=== PATIENT | female | born 1970 | race Caucasian/White ===

== ENCOUNTER 2023-10-20 17:25 | Outpatient (RCR) | payer BC, SELFPAY | END 2023-10-20 23:59 | disposition home or self-care (01) | LOC: RPT 17:25 | PROVIDERS: ATTENDING PHYSICIAN Physician Assistant Medical; FAMILY PHYSICIAN Family Medicine | DX: R26.81 Unsteadiness on feet (principal); G93.89 Other specified disorders of brain; Z98.890 Other specified postprocedural states | CPT/HCPCS: 97110; 97112; 97163; 97530 ==

== ENCOUNTER 2024-06-26 00:39 | Inpatient (IN) | payer BC, SELFPAY ==
[2024-06-25 17:49] VITALS: BP 112/74
--- NOTE | 2024-06-25 18:58 | EDRN ---
says pt has leg weakness. Pt woke this morning and was unable to bear weight on R leg. Pt has metastatic breast cancer, has mets to bones in spinal column. Last two scan everything has gotten smaller or disappeared. Oncologist said not
to worry about spinal column unless she developed symptoms. pt got a hormone suppressing drug and bone support medication. says injections hurt, and go near the sciatic nerve. No pain or numbness in leg - feels like she had an
epidural.
[2024-06-25 19:02] VITALS: BMI 19.1
[2024-06-25 19:09] VITALS: BP 118/79
[2024-06-25 20:00] VITALS: BP 121/79
[2024-06-25 20:43] LABS: Hematocrit 27.2 % (37.0-47.0); Hemoglobin 9.6 g/dL (12.0-16.0); Mean Corp Hgb Conc. 35.3 g/dL (33.0-37.0); Mean Corpuscular Hgb 35.2 pg (27.0-31.0); Mean Corpuscular Volume 99.6 fL (81.0-99.0); Platelet Count 115 10^3/uL (130-400); Red Blood Cell Count 2.73 10^6/uL (4.20-5.40); Red Cell Dist. Width 17.9 % (11.5-14.5); White Blood Cell Count 3.5 10^3/uL (4.8-10.8)
[2024-06-25 21:24] LABS: % Basophils 0.8 % (0-2); % Eosinophils 1.1 % (0-6); % Immature Granulocytes 0.3 % (0-0.5); % Lymphocytes 49.4 % (20.5-51.1); % Monocytes 3.7 % (1.7-9.3); % Neutrophils 44.7 % (42.2-75.2); Absolute Lymphocytes 1.8 10^3/uL (1.2-3.4); Absolute Monocytes 0.1 10^3/uL (0.1-0.6); Absolute Neutrophils 1.6 10^3/uL (1.4-6.5); Nucleated Red Blood Cells % 0 %
[2024-06-25 21:29] LABS: Blood Urea Nitrogen 13 mg/dl (7-17); Carbon Dioxide 23 mmol/L (22-30); Chloride 105 mmol/L (98-107); Estimated Creatinine Clearance 90 ml/min; Glucose 153 mg/dl (70-99); Potassium 3.5 mmol/L (3.5-5.1); Sodium 138 mmol/L (135-145); eGFR > 60.00
[2024-06-25 21:37] LABS: Erythrocyte Sed Rate 46 mm/hour (0-20)
[2024-06-25 22:06] VITALS: BP 129/70
[2024-06-25] MEDS: DECADRON 10 MG IV (23:34)
--- NOTE | 2024-06-25 23:43 | ED.GENMED ---
History of Present Illness
General
Chief Complaint: Musculo-Skeletal Complaint
Source: patient, records and spouse
Exam Limitations: none
Time Seen by Provider: 06/25/24 18:49
Nursing documentation reviewed up to this point in time: agreed with
History of Present Illness
History of Present Illness:
Patient is a 54-year-old female with known metastatic breast cancer who presents to the emergency department complaining of severe weakness of her right lower extremity. Patient started noticing it very mildly last night and this a.m. she is unable
to stand because of the weakness on the right leg. Patient had 2 injections on either buttock 2 days ago. That was Phosphotec's. Patient denies numbness or paresthesias. Patient denies any incontinence either bowel or bladder. Patient denies
any back pain. Patient has known metastatic lesions into the lumbar spine. However there is 1 in the vertebral body of L2, the right iliac crest and the spinal processes of L5. Patient denies any recent injuries. Patient denies any previous
history of similar episodes. About 10 months ago the patient did undergo neurosurgery for cerebellar lesions. Patient has never had symptoms like this before. Patient denies any fever or chills. Patient denies any GI or symptoms.
Past History
Past History
ED Past Medical History: Cancer (Breast) and IDDM; Negative HTN or Hypercholesterolemia
Social History
Tobacco: Non-smoker
Alcohol: None
Drug: None
Personal:
Living: with family
Employment: Employed
Family History
Family History: Hypertension
Review of Systems
Review of Systems
All Other Systems: ROS reviewed and negative except as documented in HPI and ROS
Constitutional: Denies fever, weight loss or chills
EENT: Reports no symptoms
Respiratory: Reports no symptoms
Cardiac: Reports no symptoms
ABD/GI: Reports no symptoms
: Reports no symptoms; Denies incontinence
Musculoskeletal: Denies joint pain or back pain
Skin: Reports no symptoms
Neurological: Reports weakness (Diffusely in the right lower extremity)
Hematologic/Lymphatic: Reports no symptoms
Psychiatric: Reports no symptoms
Phy Exam
Physical Exam
Physical Exam:
Physical Exam
General: No apparent distress, alert and appropriate, well nourished, well hydrated
HENT: Normocephalic, supple with no lymphadenopathy, no thyromegaly
Eyes: Clear sclera, conjuctiva without injection
Heart: Regular rhythm and rate. No S3, S4. No murmur.
Lungs: No respiratory distress, no stridor, lung sounds clear and equal bilaterally
Abdomen: Soft, nontender, no organomegaly, no CVA tenderness, BS good
Neuro: Alert and oriented x 3, CN II - XII intact, right lower extremity diffusely weak in all dermatomes, no cerebellar dysfunction, sensory intact, DTRs 2/4 and equal bilaterally
Skin: no rash
Psychiatric: well kept. interactive and cooperative
Extremities: No edema, cyanosis, tenderness, Good and equal peripheral pulses.
Musculoskeletal: No pain with straight leg raising. No cervical, thoracic or lumbar spine tenderness. No pelvic tenderness.
Course
Orders/Labs/Results
Orders:
Orders
06/25/24 19:43
CT Lumbar Spine W/ Iv Contrast Urgent
Comment:
Reason For Exam: right lower extremity weakness breast ca met
06/25/24 20:26
BMP [Basic Metabolic Panel] Urgent
Complete Blood Count/With Diff Urgent
Erythrocyte Sed Rate Urgent
06/25/24 23:26
Dexamethasone Sod Phosphate [Decadron] 10 mg IV NOW STA
06/25/24 23:32
Dexamethasone Sod Phosphate [Decadron] 20 mg .ROUTE .STK-MED ONE
Abnormal Lab Results
06/25/24
20:26
WBC 3.5 L 10^3/uL
(4.8-10.8)
RBC 2.73 L 10^6/uL
(4.20-5.40)
Hgb 9.6 L g/dL
(12.0-16.0)
Hct 27.2 L %
(37.0-47.0)
MCV 99.6 H fL
(81.0-99.0)
MCH 35.2 H pg
(27.0-31.0)
RDW 17.9 H %
(11.5-14.5)
Plt Count 115 L 10^3/uL
(130-400)
MPV 11.0 H fL
(7.4-10.4)
ESR 46 H mm/hour
(0-20)
Creatinine 0.5 L mg/dL
(0.6-1.0)
Glucose 153 H mg/dl
(70-99)
06/25/24 20:26
06/25/24 20:26
Vital Signs
Initial and Last Documented VS:
Initial Vital Signs
Temp Pulse Resp BP Pulse Ox
98.3 F 91 20 112/74 97
06/25/24 17:49 06/25/24 17:49 06/25/24 17:49 06/25/24 17:49 06/25/24 17:49
Last Documented Vital Signs
Temp Pulse Resp BP Pulse Ox
98.3 F 84 16 129/70 97
06/25/24 17:49 06/25/24 22:06 06/25/24 22:06 06/25/24 22:06 06/25/24 22:06
*Radiology
Radiology exam reviewed: radiology read reviewed
*Pulse Oximetry
Patient hypoxic: no
*EKG
Interpreted by ED Provider?: NA
*Furniture Detailer Interpretation
Rate: Furniture Detailer- N/A
*Critical Care Note
Total Time (30-74mins, 75-104mins- exclusive of procedures): Not Applicable
Update Note
Update Note:
Patient is unable to stand and weight-bear on her right lower extremity. CT was recommended by radiology. There does not appear to be anything grossly on the CT scan that would be consistent with the patient's symptoms. Would have preferred to
get an MRI but given that this is Thursday evening/night was not fully possible. In the meantime we will start steroids. Patient is on insulin pump and adjust her infusion based on her blood sugar. Patient will be admitted.
ED Attending Note
-
Portions of this chart may have been created with voice recognition software.� Occasional wrong word or��sound alike� substitutions may have occurred due to the inherent limitations of voice recognition software.
Discharge Plan
Departure
Patient Disposition: Admit
Date of Disposition: 06/25/24
Time of Disposition: 23:54
Admit to: Med/Surg
Admit to doctor: Hospitalist
Presentation/result/management discussed w/ accepting MD/DO: Hospitalist
Patient with high blood pressure during this ER visit?: No
Condition: Fair
Covid-19: Not Applicable
Discharge Problem:
Lumbar radiculopathy, acute, Ambulatory dysfunction, Breast cancer metastasized to bone
Prescriptions:
No Action
ondansetron HCl [Zofran] 8 mg Tablet
8 mg PO DAILY
calcium carbonate [Calcium 500] 500 mg calcium (1,250 mg) Tablet,Chewable
500 mg PO DAILY
esomeprazole magnesium [Nexium 24HR] 20 mg Capsule,Delayed Release(Dr/Ec)
20 mg PO DAILY
cholecalciferol (vitamin D3) 1,250 mcg (50,000 unit) Capsule
1,250 mcg PO QWEEK
Kisqali 600 mg/day (200 mg x 3) Tablet
600 mg PO DAILY
Patient Comments:
pt is on this for 3 weeks then off for 1 week
Vitamin B-6
1 tab PO DAILY
magnesium
150 mg PO DAILY
insulin aspart U-100
Patient Comments:
pt has an insulin pump
Referrals:
Alpesh Cárdenas MD [Family Provider] -
Interventions
Interventions:
*Risk Screen - Suicide Last Done: 06/25/24 18:49
*General Assessment Last Done: 06/25/24 17:49
*Neglect/Abuse Screening Last Done: 06/25/24 18:49
*ED COVID-19 Vaccine History Last Done: 06/25/24 18:49
ED-Musculoskeletal Assessment Last Done: 06/25/24 19:09
Discharge Date and Time
Print Language: LIBERIAN
[2024-06-26 00:22] VITALS: BP 124/81
--- NOTE | 2024-06-26 00:27 | HPS.HSE ---
Family Physician
-
Family Physician: Alpesh Cárdenas
Chief Complaint
-
Right lower extremity weakness
History of Present Illness
This is a 54-year-old female with past medical history of metastatic breast cancer who presents to the emergency department with sudden onset of right lower extremity weakness.
Patient has a history of breast cancer status post treatment approximately 3 years ago will obtain had recurrence with metastasis to the brain in August 2023. She is status post resection, Gamma knife radiation and subsequently on maintenance
oral chemotherapy. He has a history of type 1 diabetes on insulin pump. She reports being in usual state of health however she arose this morning and noticed the weakness in her right lower extremity. She is unable to walk due to the weakness in
that leg. She denies any numbness or tingling. She denies any incontinence of the bladder or bowel. She denies constipation. She denies any urinary urgency. Patient denies any recent falls or injuries. Patient denies any headache, blurry
vision or double vision. She denies any nausea or vomiting. She denies any or neurological deficits. She denies having fevers or chills. She denies any hearing changes. Has been no changes in her medications. She is currently off cycle for her
Kisqali.
In the emergency department she was afebrile, blood pressure was 129/70 pulse of 87 she was at 9 7% on room air. White count was 3.5, globin is 9.6 with a platelet count of 115. Chemistries were essentially unremarkable with a blood glucose of
153. Patient had a CT of the lumbar spine showing mo acute fracture or malalignment, scattered heterogenous sclerosis throughout the lumbar and visualized pelvic bones reflecting no metastatic disease. Heterogeneous sclerosis with subtle linear
lucency within L2 posterior spinous process reflecting pathologic fracture of indeterminate activity. There is no spinal canal narrowing. No gross intraspinal mass lesion.
Medical History
Past Medical History
Past Medical History: Reports Cancer (Breast Ca, recurrence with metastatic disease) and IDDM (Type I)
Past Surgical History: Reports Brain (Tumor resection)
Social History
Tobacco: Non-smoker
Alcohol: None
Drug: None
Personal:
Living: With Family
Employment: Employed
Family History
Family History: Not pertinent
Allergies / Home Medications
Allergies reflects when Allergies were last updated in [facility].
Home Medications with original date entered in [facility]
Allergy/Medication List:
Allergies
Allergy/AdvReac Type Severity Reaction Status Date / Time
No Known Allergies Allergy Verified 06/25/24 17:49
Home Medications
Vitamin B-6 1 tab PO DAILY 06/25/24
calcium carbonate (Calcium 500) 500 mg PO DAILY 06/25/24
cholecalciferol (vitamin D3) 1,250 mcg (50,000 unit) capsule 1,250 mcg PO QWEEK 06/25/24
esomeprazole magnesium 20 mg capsule,delayed release (Nexium 24HR) 20 mg PO DAILY 06/25/24
insulin aspart U-100 06/25/24
magnesium 150 mg PO DAILY 06/25/24
ondansetron HCl 8 mg tablet 8 mg PO DAILY 06/25/24
ribociclib 600 mg/day (200 mg x 3) tablets (Kisqali) 600 mg PO DAILY 06/25/24
Review of Systems
-
History Source: Patient
Constitutional: Reports No Symptoms
EENT: Reports No Symptoms
Respiratory: Reports No Symptoms
Cardiac: Reports No Symptoms
Abdomen/GI: Reports No Symptoms
: Reports No Symptoms
Musculoskeletal: Reports No Symptoms
Skin: Reports No Symptoms
Neurological: Reports Weakness
Endocrine: Reports No Symptoms
Hematologic/Lymphatic: Reports No Symptoms
Psych: Reports No Symptoms
Physical Exam
Vital Signs
Vital Signs
Temp Pulse Resp BP Pulse Ox
98.3 F 86 16 124/81 97
06/25/24 17:49 06/26/24 00:22 06/26/24 00:22 06/26/24 00:22 06/26/24 00:22
Physical Exam
General: No Apparent Distress, Comfortable, Conversant and Appears Chronically Ill
HEENT: NormoCephalic, Anicteric, Moist mucous membranes, Atraumatic and PERRLA
Respiratory: Clear
Cardiac: S1/S2 and Regular Rhythm
GI: Soft, Non Tender, Non Distended and Normal Bowel Sounds
Rectal: Deferred by Provider
Genito-urinary: Deferred by me
Musculoskeletal: No Clubbing, No Cyanosis and No Edema
Skin: Warm
Neuro: AO x 3, Cranial Nerves Intact, No Sensory Deficits, DTR's Intact & Symmetrical and Other (4/5 weakness of the Right hip and knee flexors. 4/5 weakness of the right ankle extension and flexion)
Hematologic/Lymphatic: No Lymphadenopathy
Psych: Calm
Laboratory Results
-
06/25/24 20:26
06/25/24 20:26
Laboratory Results
Total Bilirubin Cancelled 06/25/24 17:52
AST Cancelled 06/25/24 17:52
ALT Cancelled 06/25/24 17:52
Alkaline Phosphatase Cancelled 06/25/24 17:52
Data Reviewed
-
CT Scan: Report Reviewed by me
Lab Data: Labs Reviewed by me
Old Records: Reviewed
Impression/Plan
-
IMPRESSION:
Patient with history of metastatic breast cancer with mets to the brain status post gamma knife radiation, admits to the palms as well as the liver who presents to the ED with sudden onset right lower extremity weakness without numbness. Reflexes
are intact and toes are downgoing. He has no incontinence of the bladder or bowel. A CT scan of the lumbar spine revealed no canal narrowing. Numerous chronic sclerotic lesions throughout the spine and pelvic bone reflecting known metastatic
disease. Patient without any headache, vision changes, cranial nerve abnormalities, nausea or vomiting to suggest an acute intracranial process. She reports that she had an MRI on June 14 which was reviewed by her neurosurgeon and she was
told that everything was fine and that she will get a repeat MRI in July.
PLAN:
1. RLE Weakness -sudden right lower extremity weakness concerning for epidural cord compression syndrome vs radicular injury possibly secondary to vertebral abnormality versus metastatic lesion. No evidence of cord compression or cauda equina. She
has neurological deficit with weakness and ambulatory dysfunction
- admit to med/surg
- continue high dose glucocorticoid therapy - dexamethasone 10mg iv then 16 mg orally daily (4 q 6)
- no pain, continue to monitor and treat prn
- mri lumbar spine
- given recent brain mri 06/14 and no focal intracranial findings, will hold off on repeat brain scan
- neurology consultation
2. Type I DM
- patients own insulin pump
- accucheks [facility]
3. Metastatic breast ca
- supportive care with antiemetics and pain control
DVT PPX - lovenox sq
Code status - full code
[2024-06-26 06:13] LABS: Hematocrit 29.5 % (37.0-47.0); Hemoglobin 10.5 g/dL (12.0-16.0); Mean Corp Hgb Conc. 35.6 g/dL (33.0-37.0); Mean Corpuscular Volume 95.5 fL (81.0-99.0); Mean Platelet Volume 10.1 fL (7.4-10.4); Platelet Count 120 10^3/uL (130-400); Red Blood Cell Count 3.09 10^6/uL (4.20-5.40); White Blood Cell Count 2.6 10^3/uL (4.8-10.8)
[2024-06-26 06:32] LABS: Blood Urea Nitrogen 11 mg/dl (7-17); Calcium 8.7 mg/dl (8.4-10.2); Carbon Dioxide 22 mmol/L (22-30); Chloride 108 mmol/L (98-107); Estimated Creatinine Clearance 90 ml/min; Glucose 147 mg/dl (70-99); Potassium 3.9 mmol/L (3.5-5.1); Sodium 140 mmol/L (135-145); eGFR > 60.00
[2024-06-26 07:58] VITALS: BP 113/69
[2024-06-26 08:00] VITALS: BP 113/69
[2024-06-26 08:51] LABS: Glucose - Point of Care 133 mg/dl (70-99)
[2024-06-26] MEDS: DECADRON 8 MG PO ×2 (08:53→21:56)
[2024-06-26] MEDS: PT'S OWN INSULIN PUMP - NovoLOG SC ×2 (08:53→11:58)
[2024-06-26] MEDS: PROTONIX 40 MG PO (08:53)
--- NOTE | 2024-06-26 09:10 | CON.NEURO ---
Consultation
Order
Date of Consultation: 06/26/24
Requesting Provider: Ute Williamson MD
Reason for Consult: right lower extremity weakness.
CC: right leg weakness
HPI: This is a 54-year-old RH woman who presented to [facility] on June 25, 2024 with right leg weakness. According to the patient she developed acute right lower monoparesis upon awakening on the day of the presentation. No
reports of sensory deficits, involvement of the right arm, face, change in speech or headache.The patient states that her right leg weakness has been improving. She did receive 8 mg of dexamethasone earlier today in the morning
ER VS: Normotensive, afebrile
PDMP:none
Labs: pl 115-120, Hb 10.5, gluc-[address](06/25/2024)- 12 mm left sacral mass abutting the left sacroiliac joint consistent with osseous metastasis; bilateral L5 foraminal stenosis.
Brain MRI(06/14/2024) showed interval increase in the left superior frontal gyrus lesion and edema from 11/9 to 15/10 mm.
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
PSH: cerebellar mass excision, right lumpectomy, axillary lymph node dissection
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
FH: mother-lymphoma; brother-type I DM
All:NKDA
ROS:Constitutional: Negative. Negative for chills, fever and unexpected weight change.
HENT: Negative for ear pain, hearing loss, tinnitus and trouble swallowing.
Eyes: Negative. Negative for photophobia, pain and visual disturbance.
Respiratory: Negative for cough, choking and shortness of breath.
Cardiovascular: Negative for chest pain, palpitations and leg swelling.
Gastrointestinal: Negative for abdominal pain and vomiting.
Endocrine: Negative. Negative for cold intolerance.
Genitourinary: Negative for dysuria, flank pain and urgency.
Musculoskeletal: Negative for back pain, gait problem, neck pain and neck stiffness.
Skin: Negative for rash.
Allergic/Immunologic: Negative. Negative for immunocompromised state.
Neurological: positive for shuffling gait and R leg weakness
Psychiatric/Behavioral: Negative for behavioral problems, confusion and hallucinations.
General: cachectic
Cardio: Regular rate. Extremities are without cyanosis or edema.
Neuro:
Mental Status: Alert, oriented to person, place, and date. Normal attention and recall. Good fund of knowledge. Follows complex requests across the midline. Comprehension, naming, and repetition intact. Immediate and delayed recall 3/3.
Cranial Nerves: . Pupils are equally round and reactive to light. EOMs full. Visual escobedo full to confrontation. No ptosis. No nystagmus. V1-V3 intact to light touch and pinprick bilaterally, symmetric. Face symmetric. Normal hearing AU.
The palate elevated well. SCMs and traps 5/5. Tongue midline. No dysarthria.
Motor: R hip flexion, knee extension 4/5, DF 5/5.
Reflexes: 2+ throughout the upper extremities and knees. 2/2 in AJs. Plantar responses flexor bilaterally.
Sensory: Normal FFM. Normal vibration at the toes
Coordination: No dysmetria or tremor.
Gait: deferred
Assessment and Plan:
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
II. State IV breast CA
III. Ambulatory dysfunction
-Seizure precautions
-Continue Dexamethasone 4 mg Q6h IV with close glycemic monitoring and GI prophylaxis
-Brain MRI w/wo jacob to rule out an acute infarct
-ASA 81 mg QD
-PT
-DVT prophylaxis
I personally reviewed all radiology and labs along with past medical records pertinent to current medical problems. Total time spent in patient care is 60 minutes.
Thank you for allowing us to participate in the care of this patient. We will continue to follow. Please do not hesitate to contact us with any questions or concerns.
Subjective/Objective
Subjective Data
Date of Service: June 26, 2024
Objective Data
Vital Signs
Temp Pulse Resp BP Pulse Ox
37.1 C 88 16 113/69 94
06/26/24 08:00 06/26/24 08:00 06/26/24 00:22 06/26/24 08:00 06/26/24 08:00
Lab Results
06/26/24 05:55
06/26/24 05:55
Sodium 140 mmol/L (135-145) 06/26/24 05:55
Potassium 3.9 mmol/L (3.5-5.1) 06/26/24 05:55
BUN 11 mg/dl (7-17) 06/26/24 05:55
Glucose 147 mg/dl (70-99) H 06/26/24 05:55
Calcium 8.7 mg/dl (8.4-10.2) 06/26/24 05:55
Patient Allergies
No Known Allergies Allergy (Verified 06/25/24 17:49)
Medications
-
Active Medications
Generic Name Dose Route Start Last Admin
Trade Name Freq PRN Reason Stop Dose Admin
Acetaminophen 650 mg 06/26/24 01:09
Acetaminophen 325 Mg Tablet PO 07/24/24 01:08
Q4HPRN PRN
mild pain/OCONNELL/temp> 100.4F
Bisacodyl 10 mg 06/26/24 01:09
Bisacodyl 10 Mg Rectal Suppository RECTAL 07/24/24 01:08
A31CYOS PRN
constipation
Dexamethasone 8 mg 06/26/24 08:00 06/26/24 08:53
Dexamethasone 4 Mg Tablet PO 07/24/24 07:59 8 mg
Q12 KENNY Administration
Enoxaparin Sodium 30 mg 06/26/24 18:00
Enoxaparin Sodium 30 Mg/0.3 Ml Syringe SC 07/24/24 17:59
QPM KENNY
Ribociclib [Kisqali] 0 mg 06/26/24 08:00
600 Mg/Day (200 Mg PO 07/24/24 07:59
X 3) Tablet Po Daily DAILY KENNY
Ondansetron HCl 4 mg 06/26/24 01:09
Ondansetron 4 Mg/2 Ml Vial IV 07/24/24 01:08
Q6HPRN PRN
nausea and vomiting
Oxycodone HCl 5 mg 06/26/24 01:09
Oxycodone 5 Mg Regular Release Tablet PO 07/10/24 01:08
Q4HPRN PRN
moderate pain
Pantoprazole Sodium 40 mg 06/26/24 08:00 06/26/24 08:53
Pantoprazole 40 Mg Delayed Release Tablet PO 07/24/24 07:59 40 mg
DAILY KENNY Administration
Patient Own Medication 0 unit 06/26/24 07:30 06/26/24 08:53
Insulin Pump - Patient's Own Novolog (Aspart) SC 07/24/24 07:29 Not Given
ACHS KENNY
Patient Own Medication 0 unit 06/26/24 01:09
Insulin Pump - Patient's Own Novolog (Aspart) SC 07/24/24 01:08
PRN PRN
hyperglycemia
Polyethylene Glycol 17 grams 06/26/24 01:09
Polyethylene Glycol Powder 17 Grams Packet PO 07/24/24 01:08
DAILYPRN PRN
constipation
Senna/Docusate Sodium 1 tablet 06/26/24 01:09
Docusate W/Senna (Jordana-Colace) Tablet PO 07/24/24 01:08
BIDPRN PRN
constipation
Sodium Chloride 0 flush 06/26/24 01:00
Sodium Chloride 0.9% (Flush) Syringe IV 07/24/24 00:59
PER PROTOCOL KENNY
Home Medications
�Medication �Instructions �Recorded
Vitamin B-6 1 tab PO DAILY 06/25/24
calcium carbonate (Calcium 500) 500 mg PO DAILY 06/25/24
cholecalciferol (vitamin D3) 1,250 1,250 mcg PO QWEEK 06/25/24
mcg (50,000 unit) capsule
esomeprazole magnesium 20 mg 20 mg PO DAILY 06/25/24
capsule,delayed release (Nexium
24HR)
insulin aspart U-100 06/25/24
magnesium 150 mg PO DAILY 06/25/24
ondansetron HCl 8 mg tablet 8 mg PO DAILY 06/25/24
ribociclib 600 mg/day (200 mg x 3) 600 mg PO DAILY 06/25/24
tablets (Kisqali)
Vital Signs and Labs
-
Vital Signs and Labs:
Vital Signs
Temp Pulse Resp BP Pulse Ox
36.9 C 88 16 113/69 94
06/26/24 13:18 06/26/24 08:00 06/26/24 00:22 06/26/24 08:00 06/26/24 08:00
Lab Results
06/26/24 05:55
06/26/24 05:55
Sodium 140 mmol/L (135-145) 06/26/24 05:55
Potassium 3.9 mmol/L (3.5-5.1) 06/26/24 05:55
BUN 11 mg/dl (7-17) 06/26/24 05:55
Glucose 147 mg/dl (70-99) H 06/26/24 05:55
Calcium 8.7 mg/dl (8.4-10.2) 06/26/24 05:55
Medications
-
Medications:
Generic Name Dose Route Start Last Admin
Trade Name Freq PRN Reason Stop Dose Admin
Acetaminophen 650 mg 06/26/24 01:09
Acetaminophen 325 Mg Tablet PO 07/24/24 01:08
Q4HPRN PRN
mild pain/OCONNELL/temp> 100.4F
Bisacodyl 10 mg 06/26/24 01:09
Bisacodyl 10 Mg Rectal Suppository RECTAL 07/24/24 01:08
I31POOV PRN
constipation
Dexamethasone 8 mg 06/26/24 08:00 06/26/24 08:53
Dexamethasone 4 Mg Tablet PO 07/24/24 07:59 8 mg
Q12 KENNY Administration
Enoxaparin Sodium 30 mg 06/26/24 18:00
Enoxaparin Sodium 30 Mg/0.3 Ml Syringe SC 07/24/24 17:59
QPM KENNY
Heparin Sodium (Porcine) 500 unit 06/26/24 11:39 06/26/24 11:47
Heparin Flush Pf (100 Unit/Ml) 5 Ml Syringe IV 07/24/24 11:38 500 unit
PRN PRN Administration
SQ PORT FLUSH
Ribociclib [Kisqali] 0 mg 06/26/24 08:00
600 Mg/Day (200 Mg PO 07/24/24 07:59
X 3) Tablet Po Daily DAILY KENNY
Ondansetron HCl 4 mg 06/26/24 01:09
Ondansetron 4 Mg/2 Ml Vial IV 07/24/24 01:08
Q6HPRN PRN
nausea and vomiting
Oxycodone HCl 5 mg 06/26/24 01:09
Oxycodone 5 Mg Regular Release Tablet PO 07/10/24 01:08
Q4HPRN PRN
moderate pain
Pantoprazole Sodium 40 mg 06/26/24 08:00 06/26/24 08:53
Pantoprazole 40 Mg Delayed Release Tablet PO 07/24/24 07:59 40 mg
DAILY KENNY Administration
Patient Own Medication 0 unit 06/26/24 07:30 06/26/24 11:58
Insulin Pump - Patient's Own Novolog (Aspart) SC 10/27/24 07:29 Not Given
ACHS KENNY
Patient Own Medication 0 unit 06/26/24 01:09
Insulin Pump - Patient's Own Novolog (Aspart) SC 07/24/24 01:08
PRN PRN
hyperglycemia
Polyethylene Glycol 17 grams 06/26/24 01:09
Polyethylene Glycol Powder 17 Grams Packet PO 07/24/24 01:08
DAILYPRN PRN
constipation
Senna/Docusate Sodium 1 tablet 06/26/24 01:09
Docusate W/Senna (Jordana-Colace) Tablet PO 07/24/24 01:08
BIDPRN PRN
constipation
Sodium Chloride 0 flush 06/26/24 01:00
Sodium Chloride 0.9% (Flush) Syringe IV 07/24/24 00:59
PER PROTOCOL KENNY
Home Medications
-
Home Medications
calcium carbonate (Calcium 500) 500 mg PO DAILY 06/25/24
cholecalciferol (vitamin D3) 1,250 mcg (50,000 unit) capsule 1,250 mcg PO FR 06/25/24
esomeprazole magnesium 20 mg capsule,delayed release (Nexium 24HR) 20 mg PO DAILY 06/25/24
ondansetron HCl 8 mg tablet 8 mg PO DAILY 06/25/24
ribociclib 600 mg/day (200 mg x 3) tablets (Kisqali) 600 mg PO DAILY 06/25/24
Patient's Own Insulin Pump 1 sliding scale dose SC DIRECTED 06/26/24
insulin aspart U-100 100 unit/mL subcutaneous solution 1 sliding scale dose SC DIRECTED 06/26/24
magnesium oxide 200 mg PO DAILY 06/26/24
pyridoxine (vitamin B6) 100 mg tablet 100 mg PO DAILY 06/26/24
[2024-06-26 11:36] LABS: Glucose - Point of Care 149 mg/dl (70-99)
--- NOTE | 2024-06-26 14:15 | W.PN.UPDATE ---
Update Note
Progress Note Update
Nonbillable note.
CT head
Large area white matter edema involving the left frontal lobe, significantly increased from CT examination of September 19, 2023, likely edema associated with metastatic disease to the brain.
Small focus of decreased density within the right cerebellar hemisphere, appears slightly decreased compared to examination of September 19, 2023. Correlating with previous MRI, this is likely a small metastatic lesion with cystic component.
Interval increase in white matter edema at the junction of the anterior margin of the anterior horn of the right internal capsule and the deep right frontal lobe white matter, suggesting interval increase in edema associated with a metastatic lesion.
Status post left occipital craniotomy. Encephalomalacia within the posterior left cerebellar hemisphere from previous surgery.
MRI L spine
1). There are diffuse enhancing osseous metastasis throughout the sacrum, lumbar spine and lower thoracic spine without associated epidural extension or acute pathologic fracture
2). There is old 10% compression fracture of the superior endplate of L5
3). Mild endplate deformities at the superior and inferior endplates of T12 and L4 as well as at the inferior endplates of L2 are more likely Schmorl's nodes than old fractures.
4). Minimal posterior bulging of the L4-5 intervertebral disc is associated with minimal impingement upon the anterior aspect of the thecal sac at the level of exit of the L5 nerve roots
5).There is degenerative disc disease at L4-5 with moderate loss of disc stature associated with moderate bilateral L5 foraminal stenosis

RLE weakness
- improved with IV dexamethasone continue
- MRI brain w/wo contrast report reviewed from 06/14/24, had few spots of scar tissue. some reported edema from mets? - no images to review
- MRI L spine report as above
- CT head finding as above
- Patient declined mri brain in the morning, agreeable after re-discussion. will provide oral ativan before MRI brain
- Neuro evaluated and help appreciated
- Maintain patient on IV dexamethasone for now for likely brain metastatic disease related cerebral edema
[2024-06-26 15:19] VITALS: BP 123/79; PULSE 96; O2SAT 100
[2024-06-26] MEDS: ASPIR LOW (ENTERIC COATED) 81 MG PO (15:44)
[2024-06-26 16:30] VITALS: BP 108/70; BMI 19.0
[2024-06-26 16:54] LABS: Glucose - Point of Care 268 mg/dl (70-99)
[2024-06-26] MEDS: PT'S OWN INSULIN PUMP - NovoLOG 3.6 UNIT SC (17:07)
[2024-06-26] MEDS: LOVENOX 30 MG SC (17:08)
[2024-06-26 21:22] LABS: Glucose - Point of Care 316 mg/dl (70-99)
[2024-06-26] MEDS: PT'S OWN INSULIN PUMP - NovoLOG 0.47 UNIT SC (21:58)
[2024-06-26 23:40] VITALS: BP 100/66
[2024-06-27 05:37] LABS: Hematocrit 28.1 % (37.0-47.0); Hemoglobin 10.1 g/dL (12.0-16.0); Mean Corp Hgb Conc. 35.9 g/dL (33.0-37.0); Mean Corpuscular Hgb 34.8 pg (27.0-31.0); Mean Corpuscular Volume 96.9 fL (81.0-99.0); Platelet Count 138 10^3/uL (130-400); White Blood Cell Count 4.4 10^3/uL (4.8-10.8)
[2024-06-27 06:54] LABS: Blood Urea Nitrogen 24 mg/dl (7-17); Carbon Dioxide 22 mmol/L (22-30); Chloride 108 mmol/L (98-107); Estimated Creatinine Clearance 88 ml/min; Glucose 271 mg/dl (70-99); Potassium 4.4 mmol/L (3.5-5.1); Sodium 139 mmol/L (135-145); eGFR > 60.00
[2024-06-27 07:00] VITALS: BP 133/64
[2024-06-27 08:14] LABS: Glucose - Point of Care 264 mg/dl (70-99)
[2024-06-27] MEDS: PT'S OWN INSULIN PUMP - NovoLOG 3.4 UNIT SC (09:26)
[2024-06-27] MEDS: PROTONIX 40 MG PO (09:27)
[2024-06-27] MEDS: ASPIR LOW (ENTERIC COATED) 81 MG PO (09:27)
[2024-06-27] MEDS: DECADRON 8 MG PO (09:27)
--- NOTE | 2024-06-27 11:16 | W.PN.NEURO.1 ---
Documented by User: Marilyn Cheng NP 06/27/24 13:02
Today's Communication / Plan
-
.
Neuro Assessment/Plan
Assessment
This is a 54-year-old RH female who presented to on June 25, 2024 with right leg weakness. According to the patient she developed acute right lower monoparesis upon awakening on the day of the presentation. Symptoms greatly improved
following IV Decadron administration.
-Outpatient Brain MRI(06/14/2024) showed interval increase in the left superior frontal gyrus lesion and edema from 11/9 to 15/10 mm.
-MRI lumbar spine 06/26/24: There are diffuse enhancing osseous metastasis throughout the sacrum, lumbar spine and lower thoracic spine without associated epidural extension or acute pathologic fracture. There is old 10% compression fracture of the
superior endplate of L5. Mild endplate deformities at the superior and inferior endplates of T12 and L4 as well as at the inferior endplates of L2 are more likely Schmorl's nodes than old fractures.
Minimal posterior bulging of the L4-5 intervertebral disc is associated with minimal impingement upon the anterior aspect of the thecal sac at the level of exit of the L5 nerve roots. There is degenerative disc disease at L4-5 with moderate loss of
disc stature associated with moderate bilateral L5 foraminal stenosis
I. 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
II. State IV breast CA.
III. Ambulatory dysfunction.
IV. Lumbar spine with DDD changes.
Plan
-Seizure precautions
-Continue Dexamethasone 4 mg Q6h IV with close glycemic monitoring and GI prophylaxis
-Brain MRI w/wo jacob to rule out an acute infarct.
-ASA 81 mg QD.
-PT/OT evaluations.
-Neurological checks per unit guidelines.
-DVT prophylaxis.
Subjective/Objective
Subjective Data
Date of Service: June 27, 2024
No acute events overnight. Patient reports that her RLE weakness is greatly improved and almost at baseline. She denies any headache, dizziness, vision changes, speech/swallowing difficulty, numbness, chest pain, palpitations, and shortness of
breath.
Objective Data
Vital Signs
Temp Pulse Resp BP Pulse Ox
98.1 F 81 18 133/64 97
06/27/24 07:00 06/27/24 07:00 06/27/24 07:00 06/27/24 07:00 06/27/24 07:00
Lab Results
06/27/24 05:29
06/27/24 05:29
Sodium 139 mmol/L (135-145) 06/27/24 05:
Potassium 4.4 mmol/L (3.5-5.1) 06/27/24 05:
BUN 24 mg/dl (7-17) H 06/27/24 05:29
Glucose 271 mg/dl (70-99) H 06/27/24 05:
Calcium 9.0 mg/dl (8.4-10.2) 06/27/24 05:29
Patient Allergies
No Known Allergies Allergy (Verified 06/25/24 17:49)
Review of Systems
-
History Source: Patient
EENT: Negative Blurry Vision, Decreased Vision or Swallowing Difficulty
Respiratory: Negative Cough or Trouble Breathing
Cardiac: Negative Chest Pain or Palpitations
Abdomen/GI: Negative Nausea
Neuro: Weakness and Speech Problem; Negative Dizzy, Headache, Numbness, Ataxia or Tremors
Physical Exam
-
General: No Apparent Distress
Eyes: No Ptosis and PERRLA
HEENT: Normocephalic and Atraumatic
Neck: Full Range of Motion
Respiratory: No Dyspnea
GI: Non-distended
Extremities: No Clubbing, No Cyanosis and No Edema
Psych: Unremarkable
Extended Neurological Exam
Mood & Affect: Mood Unremarkable and Affect Unremarkable
Attention Span & Concentration: Awake, Alert and Interactive
Memory: Unremarkable (AAOx3) and Able to Recall
Tremor: Hand Tremor Absent and Head Tremor Absent
Involuntary Movement: None
Speech: Quality Unremarkable, Quantity Unremarkable and Rate of Production Unremarkable
Cranial Nerve II: Left Eye: Pupillary Reactivity Unremarkable, Pupillary Size Unremarkable and Visual Delvalle Intact
Cranial Nerve II: Right Eye: Pupillary Reactivity Unremarkable, Pupillary Size Unremarkable and Visual Delvalle Intact
Cranial Nerves III, IV, : Extraocular Movement: Extraocular Movement Full in all Directions
Cranial Nerve V: Facial Sensation: Intact to Light Touch
Cranial Nerve VII: Facial Symmetry: Normal Facial Symmetry
Cranial Nerve VIII: Hearing: Unremarkable Hearing to Normal Conversational Volume
Cranial Nerves IX, X: Palate Movement: Palate Elevation Symmetric
Cranial Nerve XI: Shoulder Shrug: Unremarkable
Cranial Nerve XII: Tongue Protusion: Midline
Muscle Strength, Overall: Reduced on Right (RLE 5-/5)
Muscle Bulk & Tone: Bulk Unremarkable and Tone Unremarkable
Pronator Drift: No Drift in Upper Extremities and No Drift in Lower Extremities
Coordination: [id number] Testing Unremarkable
Babinski Sign: Absent Bilaterally
Data Reviewed
-
CT Head: Report Reviewed and Image Reviewed
MRI Lumbar Spine: Report Reviewed and Image Reviewed
Labs: Report Reviewed
Reviewed with: Physician and Patient
Medications
-
Active Medications
Generic Name Dose Route Start Last Admin
Trade Name Freq PRN Reason Stop Dose Admin
Acetaminophen 650 mg 06/26/24 01:09
Acetaminophen 325 Mg Tablet PO 07/24/24 01:08
Q4HPRN PRN
mild pain/OCONNELL/temp> 100.4F
Aspirin 81 mg 06/26/24 15:00 06/27/24 09:27
Aspirin 81 Mg (Enteric Coated) Tablet PO 07/24/24 14:59 81 mg
DAILY KENNY Administration
Bisacodyl 10 mg 06/26/24 01:09
Bisacodyl 10 Mg Rectal Suppository RECTAL 07/24/24 01:08
[id number] PRN
constipation
Dexamethasone 8 mg 06/26/24 08:00 06/27/24 09:27
Dexamethasone 4 Mg Tablet PO 07/24/24 07:59 8 mg
Q12 KENNY Administration
Enoxaparin Sodium 30 mg 06/26/24 18:00 06/26/24 17:08
Enoxaparin Sodium 30 Mg/0.3 Ml Syringe SC 07/24/24 17:59 30 mg
QPM KENNY Administration
Heparin Sodium (Porcine) 500 unit 06/26/24 11:39 06/26/24 11:47
Heparin Flush Pf (100 Unit/Ml) 5 Ml Syringe IV 07/24/24 11:38 500 unit
PRN PRN Administration
SQ PORT FLUSH
Lorazepam 1 mg 06/26/24 14:30 06/27/24 12:22
Lorazepam 1 Mg Tablet PO 07/24/24 14:29 1 mg
ONCE PRN Administration
before MRI brain
Ribociclib [Kisqali] 0 mg 06/26/24 08:00
600 Mg/Day (200 Mg PO 07/24/24 07:59
X 3) Tablet Po Daily DAILY KENNY
Ondansetron HCl 4 mg 06/26/24 01:09
Ondansetron 4 Mg/2 Ml Vial IV 07/24/24 01:08
Q6HPRN PRN
nausea and vomiting
Oxycodone HCl 5 mg 06/26/24 01:09
Oxycodone 5 Mg Regular Release Tablet PO 07/10/24 01:08
Q4HPRN PRN
moderate pain
Pantoprazole Sodium 40 mg 06/26/24 08:00 06/27/24 09:27
Pantoprazole 40 Mg Delayed Release Tablet PO 07/24/24 07:59 40 mg
DAILY KENNY Administration
Patient Own Medication 0 unit 06/26/24 07:30 06/27/24 09:26
Insulin Pump - Patient's Own Novolog (Aspart) SC 07/24/24 07:29 3.4 unit
ACHS KENNY Administration
Patient Own Medication 0 unit 06/26/24 01:09
Insulin Pump - Patient's Own Novolog (Aspart) SC 07/24/24 01:08
PRN PRN
hyperglycemia
Polyethylene Glycol 17 grams 06/26/24 01:09
Polyethylene Glycol Powder 17 Grams Packet PO 07/24/24 01:08
DAILYPRN PRN
constipation
Senna/Docusate Sodium 1 tablet 06/26/24 01:09
Docusate W/Senna (Jordana-Colace) Tablet PO 07/24/24 01:08
BIDPRN PRN
constipation
Sodium Chloride 0 flush 06/26/24 01:00
Sodium Chloride 0.9% (Flush) Syringe IV 07/24/24 00:59
PER PROTOCOL KENNY
Home Medications
�Medication �Instructions �Recorded
calcium carbonate (Calcium 500) 500 mg PO DAILY 06/25/24
cholecalciferol (vitamin D3) 1,250 1,250 mcg PO FR 06/25/24
mcg (50,000 unit) capsule
esomeprazole magnesium 20 mg 20 mg PO DAILY 06/25/24
capsule,delayed release (Nexium
24HR)
ondansetron HCl 8 mg tablet 8 mg PO DAILY 06/25/24
ribociclib 600 mg/day (200 mg x 3) 600 mg PO DAILY 06/25/24
tablets (Kisqali)
Patient's Own Insulin Pump 1 sliding scale dose SC DIRECTED 06/26/24
insulin aspart U-100 100 unit/mL 1 sliding scale dose SC DIRECTED 06/26/24
subcutaneous solution
magnesium oxide 200 mg PO DAILY 06/26/24
pyridoxine (vitamin B6) 100 mg 100 mg PO DAILY 06/26/24
tablet

Documented by User: Kenneth Woods MD 06/27/24 20:47
Today's Communication / Plan
-
54 yr. old lady with h/o metastatic breast cancer with brain metastasis, DM who was admitted for leg weakness.
O/E : Awake, alert oriented to person place month/year. Speech fluent with intact comprehension. Normal cranial nerve exam with Right leg weakness resolving
PLAN: Decadron 8 mg Q 12
MRI head with jacob
Consider Depakote 500mg q hs seizure prophylaxis
Palliative care
--- NOTE | 2024-06-27 11:44 | CM ---
integrity manager reviewed patient's chart and met with patient and patient states she lives with her spouse in a multilevel home, is independent with adl's and ambulation, has a walker in home that she did not use.
Pharmacy: [facility]
PCP: Dr. Cárdenas
[2024-06-27] MEDS: ATIVAN 1 MG PO (12:22)
--- NOTE | 2024-06-27 13:43 | W.PN.HOSP.TC ---
Addendum entered and electronically signed by Juan Luis Tubbs MD 06/29/24 17:14:
In response to CDI query
Pancytopenia due to ribociclib
Addendum entered and electronically signed by Juan Luis Tubbs MD 06/27/24 14:45:
I saw and evaluated the patient. I reviewed the resident�s note and agree with findings and plan as documented in the resident�s note.
CT head
Large area white matter edema involving the left frontal lobe, significantly increased from CT examination of September 19, 2023, likely edema associated with metastatic disease to the brain.
Small focus of decreased density within the right cerebellar hemisphere, appears slightly decreased compared to examination of September 19, 2023. Correlating with previous MRI, this is likely a small metastatic lesion with cystic component.
Interval increase in white matter edema at the junction of the anterior margin of the anterior horn of the right internal capsule and the deep right frontal lobe white matter, suggesting interval increase in edema associated with a metastatic lesion.
Status post left occipital craniotomy. Encephalomalacia within the posterior left cerebellar hemisphere from previous surgery.
MRI L spine
1). There are diffuse enhancing osseous metastasis throughout the sacrum, lumbar spine and lower thoracic spine without associated epidural extension or acute pathologic fracture
2). There is old 10% compression fracture of the superior endplate of L5
3). Mild endplate deformities at the superior and inferior endplates of T12 and L4 as well as at the inferior endplates of L2 are more likely Schmorl's nodes than old fractures.
4). Minimal posterior bulging of the L4-5 intervertebral disc is associated with minimal impingement upon the anterior aspect of the thecal sac at the level of exit of the L5 nerve roots
5).There is degenerative disc disease at L4-5 with moderate loss of disc stature associated with moderate bilateral L5 foraminal stenosis

Metastatic brain disease
Vasogenic edema
- improved with IV dexamethasone continue
- MRI brain w/wo contrast report reviewed from 06/14/24, had few spots of scar tissue. some reported edema from mets? - no images to review
- MRI L spine report as above
- CT head finding as above
- Neuro evaluated and help appreciated
- Maintain patient on IV dexamethasone for now for likely brain metastatic disease related cerebral edema
- Repeat MRI brain report pending today- images reviewed and visible metastatic disease and surrounding edema.
- Care plan discussed with primary oncologist - Dr car and will f/u in office
- Patient able to get around with minimal use of walker
- Right lower extremity motor power 4/5
Patient can likely be discharged later today after MRI report finalized
Patient to be maintained on oral dexamethasone 4 mg every 6 hours at discharge until evaluated by oncologist in office
Original Note:
Today's Communication/Plan
-
Follow-up brain MRI
CBC for neutropenia monitoring
Continue dexamethasone at 8 mg 12 hourly
PT OT evaluation
Assessment / Plan
Assessment / Plan
IMPRESSION
A 51 yr old female, history of stage 4 breast cancer with mets to lung, liver and brain. She had left occipital craniotomy on 2022. Admitted with Right lower leg weakness, Left frontal syndrome neoplastic versus vascular in [place] territory.
ASSESSMENT AND PLAN
Assessment
Stage IV breast cancer
Left frontal syndrome
Diabetes mellitus
Ambulatory dysfunction
Plan
Stage IV breast cancer
Recurrence of brain mets??
Right leg weakness
CT head
Large area white matter edema involving the left frontal lobe, significantly increased from CT examination of September 19, 2023, likely edema associated with metastatic disease to the brain.
Small focus of decreased density within the right cerebellar hemisphere, appears slightly decreased compared to examination of September 19, 2023. Correlating with previous MRI, this is likely a small metastatic lesion with cystic component.
Interval increase in white matter edema at the junction of the anterior margin of the anterior horn of the right internal capsule and the deep right frontal lobe white matter, suggesting interval increase in edema associated with a metastatic lesion.
Status post left occipital craniotomy. Encephalomalacia within the posterior left cerebellar hemisphere from previous surgery.
MRI lumbar spine
1). There are diffuse enhancing osseous metastasis throughout the sacrum, lumbar spine and lower thoracic spine without associated epidural extension or acute pathologic fracture
2). There is old 10% compression fracture of the superior endplate of L5
3).Mild endplate deformities at the superior and inferior endplates of T12 and L4 as well as at the inferior endplates of L2 are more likely Schmorl's nodes than old fractures.
4). Minimal posterior bulging of the L4-5 intervertebral disc is associated with minimal impingement upon the anterior aspect of the thecal sac at the level of exit of the L5 nerve roots
5).There is degenerative disc disease at L4-5 with moderate loss of disc stature associated with moderate bilateral L5 foraminal stenosis
neurology consult appreciated
-Continue Dexamethasone 8 mg 12 hourly IV with close glycemic monitoring and GI prophylaxis
-Brain MRI w/wo jacob to rule out an acute infarct.
-ASA 81 mg QD.
-PT/OT evaluations.
Left frontal syndrome
Patient has right leg weakness. Lesion distribution is in the anterior cerebral artery territory. Neurology consult appreciated.
Brain MRI reporting pending, confirmed neoplastic versus vascular lesion.
Most likely appears to be neoplastic
Weakness improved with dexamethasone
Continue DEXA at 5 mg 6 hourly dose
Diabetes mellitus
Patient uses insulin pump
continue monitoring blood sugar levels
Ambulatory dysfunction
PT/OT evaluations
Patient started using a walker today
Patient had neutropenia(2.6), now WBC count 4.5, keep monitoring CBC
Patient has monthly chemo sessions
CODE STATUS- full code
DVT prophylaxis -Lovenox
Anticipated Discharge: 24 - 48 hours
Subjective/Interval History
-
Date of Service: June 27, 2024
51 year old female, has right leg weakness secondary to stage 4 breast cancer most likely secondary to brain metastasis
Objective Data
-
Labs:
Laboratory Results
06/27/24
05:29
WBC 4.4 L
Hgb 10.1 L
Hct 28.1 L
Plt Count 138
Sodium 139
Potassium 4.4
Chloride 108 H
Carbon Dioxide 22
BUN 24 H
Creatinine 0.5 L
Glucose 271 H
Calcium 9.0
Vital Signs:
Vital Signs
Temp Pulse Resp BP Pulse Ox
98.1 F 81 18 133/64 97
06/27/24 07:00 06/27/24 07:00 06/27/24 07:00 06/27/24 07:00 06/27/24 07:00
I&O
06/26/24 06/27/24 06/28/24
06:59 06:59 06:59
Intake Total 240 / 240
Balance 240 / 240
Review of Systems
-
All other systems: Reviewed and negative
Physical Exam
-
General: Well Developed, Well Nourished, No Apparent Distress and Comfortable
HEENT: Normocephalic and Atraumatic
Respiratory: Clear to Auscultation
Cardiac: Regular Rhythm and S1/S2
GI: Soft, Nontender and Normal Bowel Sounds
Genito-urinary: No Costovertebral Tender
Musculoskeletal: No Clubbing, No Cyanosis and No Edema
Skin: Warm and Dry
Neuro: Awake, Alert, Oriented and Other (right leg power 4/5, left leg 5/5)
Hematologic / Lymphatic: No Lymphadenopathy
Psych: Calm
[2024-06-27 14:29] LABS: Glucose - Point of Care 263 mg/dl (70-99)
[2024-06-27] MEDS: PT'S OWN INSULIN PUMP - NovoLOG 3.2 UNIT SC (14:34)
[2024-06-27 15:00] VITALS: BP 138/67
[2024-06-27 15:05] LABS: HDL Cholesterol 77 mg/dl; LDL Cholesterol, Calculated 84 mg/dl; Total Cholesterol 170 mg/dl (50-199); Triglyceride 49 mg/dl (10-149); Very Low Density Lipoprotein 9 mg/dl (0-30)
[2024-06-27 15:43] VITALS: BMI 19.0
--- NOTE | 2024-06-27 16:07 | W.DCSUMMARY ---
Discharge Summary
Discharge Data
Date of Admission: 06/26/24
Date of Discharge: 06/27/24
-
Pending Results: No
Hospital Course
Discharging Physician : Juan Luis Ny
Principal Discharge diagnosis :
Right lower limb weakness secondary to Stage 4 breast cancer mets to brain in [place] territory.
Chronic Discharge diagnosis :.
Hospital Course :
Patient is a 54 year old female with past medical history of stage 4 breast cancer with mets to liver , lung and brain. She had sudden onset of right lower limb weakness three day ago that was progressive in nature with no bladder or bowel
involvement. She had no sensory deficits, denied fever, headaches, seizures, speech or swallowing difficulties. A CT of of head was done that showed left frontal lobe lesion with associated edema. To rule out neoplastic versus vascular cause, an MRI
of brain was done which confirmed it to be a metastatic lesion with associated edema. The weakness improved with high dose intravenous dexamethasone dose.She started to ambulate. She will continue her chemotherapy sessions and will follow up with
her oncologist.
Important imaging findings :
MRI BRAIN
Within the anterior left frontal lobe white matter, there is a 1.5 cm peripherally enhancing lesion which has significantly increased in size compared to previous MRI, previously measuring 4 mm. Significant interval increase in white matter edema in
the anterior left frontal lobe with some loss of definition of adjacent sulci as a result of edema.
Within the white matter of the posterior left frontal lobe, there is a 1.6 cm focus of peripheral enhancement, increased from examination of August 2023 when it measured 10 mm. Interval increase in adjacent white matter edema within the posterior
left frontal lobe and extending into the anterior left parietal lobe.
IMPRESSION:MRI Lumbar Spine
1). There are diffuse enhancing osseous metastasis throughout the sacrum, lumbar spine and lower thoracic spine without associated epidural extension or acute pathologic fracture
2). There is old 10% compression fracture of the superior endplate of L5
3).Mild endplate deformities at the superior and inferior endplates of T12 and L4 as well as at the inferior endplates of L2 are more likely Schmorl's nodes than old fractures.
4). Minimal posterior bulging of the L4-5 intervertebral disc is associated with minimal impingement upon the anterior aspect of the thecal sac at the level of exit of the L5 nerve roots
5).There is degenerative disc disease at L4-5 with moderate loss of disc stature associated with moderate bilateral L5 foraminal stenosis
Discharge Plan
-
Patient Disposition: Home (Routine Discharge)
Discharge Diagnosis/Procedures: Right leg weakness for possible brain mets/inflammation
Condition: Fair
Diet: Regular
Activity: Do not bear weight R leg
Driving Restrictions: No driving
Bathing Restrictions: OK to Shower
Referrals:
Bambi Bazan MD [Non-Admitting Privileges] -
Alpesh Cárdenas MD [Family Provider] - in one week
Prescriptions:
New
dexamethasone 4 mg tablet
4 mg PO Q6H 20 Days Qty: 80 0RF
Continued
ondansetron HCl 8 mg Tablet
8 mg PO DAILY
calcium carbonate [Calcium 500] 500 mg calcium (1,250 mg) Tablet,Chewable
500 mg PO DAILY
esomeprazole magnesium [Nexium 24HR] 20 mg Capsule,Delayed Release(Dr/Ec)
20 mg PO DAILY
cholecalciferol (vitamin D3) 1,250 mcg (50,000 unit) Capsule
1,250 mcg PO FR
Kisqali 600 mg/day (200 mg x 3) Tablet
600 mg PO DAILY
Patient Comments:
06/26/24: pt is on this for 3 weeks then off for 1 week, currently on off week
insulin aspart U-100 100 unit/mL Solution
1 sliding scale dose SC DIRECTED
Patient Comments:
06/26/24: Utilizes own insulin pump.
pyridoxine (vitamin B6) 100 mg Tablet
100 mg PO DAILY
magnesium oxide 200 mg magnesium Tablet
200 mg PO DAILY
Patient's Own Insulin Pump
1 sliding scale dose SC DIRECTED
Discharge Orders:
Discharge Patient (As Directed); Ordered 06/27/24
Ordered By: Juan Luis Tubbs
Discharge Date and Time
Print Language: OMANI
--- NOTE | 2024-06-27 16:27 | W.DCSUMMARY ---
Discharge Summary
Discharge Data
Date of Admission: 06/26/24
Date of Discharge: 06/27/24
Discharge Plan
-
Patient Disposition: Home (Routine Discharge)
Discharge Diagnosis/Procedures: Right leg weakness for possible brain mets/inflammation
Condition: Fair
Diet: Regular
Activity: Do not bear weight R leg
Driving Restrictions: No driving
Bathing Restrictions: OK to Shower
Referrals:
Bambi Bazan MD [Non-Admitting Privileges] -
Alpesh Cárdenas MD [Family Provider] - in one week
Prescriptions:
New
dexamethasone 4 mg tablet
4 mg PO Q6H 20 Days Qty: 80 0RF
Continued
ondansetron HCl 8 mg Tablet
8 mg PO DAILY
calcium carbonate [Calcium 500] 500 mg calcium (1,250 mg) Tablet,Chewable
500 mg PO DAILY
esomeprazole magnesium [Nexium 24HR] 20 mg Capsule,Delayed Release(Dr/Ec)
20 mg PO DAILY
cholecalciferol (vitamin D3) 1,250 mcg (50,000 unit) Capsule
1,250 mcg PO FR
Kisqali 600 mg/day (200 mg x 3) Tablet
600 mg PO DAILY
Patient Comments:
06/26/24: pt is on this for 3 weeks then off for 1 week, currently on off week
insulin aspart U-100 100 unit/mL Solution
1 sliding scale dose SC DIRECTED
Patient Comments:
06/26/24: Utilizes own insulin pump.
pyridoxine (vitamin B6) 100 mg Tablet
100 mg PO DAILY
magnesium oxide 200 mg magnesium Tablet
200 mg PO DAILY
Patient's Own Insulin Pump
1 sliding scale dose SC DIRECTED
Discharge Orders:
Discharge Patient (As Directed); Ordered 06/27/24
Ordered By: Juan Luis Tubbs
Discharge Date and Time
Print Language: SRI LANKAN
[2024-06-27] MEDS: LOVENOX SC (17:26)
[2024-06-27] MEDS: PT'S OWN INSULIN PUMP - NovoLOG SC (17:26)
[2024-06-28 09:06] LABS: Glycohemoglobin (HgbA1c) 6.5 % (4.0-5.6)
--- NOTE | 2024-06-28 09:15 | PN.CDI ---
CDI
- -
CDI:
Physician Documentation Request
Admit Date: 06/26/24 00:39
Dear Doctor,
Please review the following and provide your response in the progress notes.
Clinical Indicators:
- 06/26 H&P past medical history of metastatic breast cancer
- Home medication ribociclib daily
Laboratory Tests
06/25/24 06/26/24 06/27/24
20:26 05:55 05:29
WBC 3.5 L 2.6 L 4.4 L
RBC 2.73 L 3.09 L 2.90 L
Plt Count 115 L 120 L 138
Please provide a diagnosis for the above lab values:
Pancytopenia due to ribociclib
Pancytopenia
Other
Use of terms such as suspected, likely, concern for, or probable (associated with a specific diagnosis that is being evaluated, monitored, or treated as if it exists) are acceptable and can be coded in the inpatient setting, when documented at the
time of discharge.
Thank you,
Chaparro Evans RN
CDI Specialist
Please use your independent medical judgment in providing your response.
== END 2024-06-27 18:02 | disposition home or self-care (01) | DRG 80 ==
LOC: 4 WEST ACU 00:39
PROVIDERS: ADMITTING PHYSICIAN Internal Medicine; ATTENDING PHYSICIAN Hospitalist; CONSULT PHYSICIAN Psychiatry & Neurology Neurology; EMERGENCY PHYSICIAN Emergency Medicine; FAMILY PHYSICIAN Family Medicine
DX: G93.6 Cerebral edema (principal); D61.810 Antineoplastic chemotherapy induced pancytopenia; C79.31 Secondary malignant neoplasm of brain; C79.51 Secondary malignant neoplasm of bone; C78.7 Secondary malignant neoplasm of liver and intrahepatic bile duct; E10.9 Type 1 diabetes mellitus without complications; C50.911 Malignant neoplasm of unspecified site of right female breast; T45.1X5A Adverse effect of antineoplastic and immunosuppressive drugs, initial encounter; M48.061 Spinal stenosis, lumbar region without neurogenic claudication; M51.36 Other intervertebral disc degeneration, lumbar region; M54.16 Radiculopathy, lumbar region; R53.1 Weakness; Z96.41 Presence of insulin pump (external) (internal); Z79.4 Long term (current) use of insulin; Z79.82 Long term (current) use of aspirin; Z79.899 Other long term (current) drug therapy; Z83.3 Family history of diabetes mellitus
CPT/HCPCS: 70450; 70553; 72132; 72158; 80048; 80061; 82962; 83036; 85025; 85027; 85652; 96374; 97162; 97166; 99285; A9575

== ENCOUNTER 2025-09-13 17:00 | Inpatient (IN) | payer BC, SELFPAY ==
[2025-09-13] VITALS (22 sets, daily range): BP systolic 100–160; BP diastolic 67–129
[2025-09-13] MEDS: ATIVAN 2 MG IV (13:59)
[2025-09-13 14:13] LABS: Hematocrit 33.4 % (37.0-47.0); Hemoglobin 10.9 g/dL (12.0-16.0); Mean Corp Hgb Conc. 32.6 g/dL (33.0-37.0); Mean Corpuscular Volume 104.7 fL (81.0-99.0); Nucleated Red Blood Cells % 0.3 %; Platelet Count 228 10^3/uL (130-400); Red Cell Dist. Width 13.9 % (11.5-14.5)
[2025-09-13] MEDS: NSS 1000 IV ×3 (14:15→19:26)
--- NOTE | 2025-09-13 14:16 | ED.GENMED ---
History of Present Illness
<Humza Hummel DO - Last Filed: 09/13/25 14:25>
General
Chief Complaint: Seizure
Time Seen by Provider: 09/13/25 13:59
<Mar Lacey PA-C - Last Filed: 09/13/25 16:19>
General
Source: spouse and ambulance crew
Exam Limitations: altered mental status
History of Present Illness
History of Present Illness:
55yoF with history of metastatic breast cancer and type 1 diabetes presenting via EMS for evaluation after a seizure. History is obtained by EMS as well as . states that patient participated in PT this morning and seemed normal.
Around 1 PM today, she was speaking with her and started to stare blankly ahead. She stated 'I might be a little confused.' She subsequently fell down and started convulsing. No head strike per . Her whole body was shaking for
about 5-10 minutes before her body stopped shaking but her eyes were roving and she continued to have lip smacking. She was actively seizing on EMS arrival and was initially given 5 mg IM Versed followed by 2 mg IV Versed. Prehospital fingerstick
glucose 232. Patient continues to have active seizures on arrival to the ED.
No prior history of seizures per family. She was initially treated for brain mets in 2022 and had a craniotomy and tumor removal by Dr. Pagan. She has received all further treatment at [facility] and has completed gamma knife radiation. She recently
had a tumor resection on 07/28 at [facility] by Dr. Bullard. 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 She was told that she had no further brain lesions per . She is currently treated with chemotherapy every 3 weeks.
She has recently been weaned off of steroids. She was scheduled to have follow-up CT head on 09/25/25.
Past History
<Humza Hummel DO - Last Filed: 09/13/25 14:25>
Past History
ED Past Medical History: Cancer (Breast) and IDDM; Negative HTN or Hypercholesterolemia
ED Past Surgical History: Negative Cardiac
Social History
Tobacco: Non-smoker
Alcohol: None
Drug: None
Personal:
Living: with family
Employment: Employed
Family History
Family History: Hypertension
Phy Exam
<Mar Lacey PA-C - Last Filed: 09/13/25 16:19>
Physical Exam
Physical Exam:
Patient obtunded and actively seizing with generalized tonic clonic movements noted. Unresponsive to painful stimuli
General Physical Exam
General Presentation: severe distress
General Skin: warm and dry
Eye Exam
Eye Exam: PERRL and other (+Horizontal nystagmus)
Cardiovascular Exam
Cardiovascular Exam: tachycardia
Pulmonary Exam
Pulmonary Exam: lungs clear, no respiratory distress, no rales, no crackles, no rhonchi and no stridor
Neurological Exam
Neurological Exam: other (Actively seizing)
[place] Coma Scale
Eye Opening: None
Verbal Response: None
Motor Response: None
GCS Total Score: 3
Skin Exam
Skin Exam: normal color and warm/dry
Course
<Humza Hummel, DO - Last Filed: 09/13/25 14:25>
Orders/Labs/Results
Orders:
Orders
09/13/25 13:53
Electrocardiogram (*1) Urgent
Reason for Study: Other
Other Reason for Exam: seizure
EKG- Treatment ONCE
09/13/25 13:57
Lorazepam [Ativan] 2 mg .ROUTE .STK-MED ONE
09/13/25 13:58
Lorazepam [Ativan] 2 mg IV NOW STA
09/13/25 14:01
Propofol 1,000,000 Mcg/100 ml [Diprivan] 1,000,000 mcg in 100 ml .ROUTE .STK-MED
09/13/25 14:07
Complete Blood Count/With Diff Urgent
Comprehensive Metabolic Panel Urgent
Triglycerides Urgent
Comment: ADD ON
09/13/25 14:12
Cardiac Monitoring- Treatment ONCE
0.9% Sodium Chloride 1000 ml [Nss] 1,000 ml IV BOLUS
CXR Port [CR Chest Portable - 1 View] Stat
Comment:
Reason For Exam: s/p intubation
Reason Study Needs to be Portable: Unable to Transport
09/13/25 14:13
CT Head W/o Iv Contrast Urgent
Comment:
Reason For Exam: status epilepticus, hx of brain mets
09/13/25 14:18
Propofol 1,000,000 Mcg/100 ml [Diprivan] 1,000,000 mcg in 100 ml IV NOW
Indication:: Light Sedation
Begin Infusion:: Now
Goal:: RASS 0 to -2
Maximum dose in mcg/kg/min:: 50
Initial dose based on RASS:: Yes
If RASS is:: +1 or pt hemodynamically unstable (SBP < 90mmHg), initiate at 10 mcg/kg/min
If RASS is:: +2, initiate at 20 mcg/kg/min
If RASS is:: greater than or equal to +3, initiate at 30 mcg/kg/min
Titration Instructions:: Titrate by 5-10 mcg/kg/min every 5 minutes until RASS 0 to -2 achieved.
Taper Instructions:: If RASS is at or below goal for 4 consecutive hours decrease infusion by
Taper Instructions:: 5-10 mcg/kg/min every 2 hours to off.
Over-sedation Instructions:: If CPOT 0-2 (at goal) AND RASS -3 to -5 (below goal) decrease sedative by
Over-sedation Instructions:: 50% first. If pain score remains at goal and RASS remains below goal in
Over-sedation Instructions:: 1 hour, decrease opioid infusion by 50%.
Notify provider:: immediately if patient exhibits signs/symptoms of propofol-related
Notify provider:: infusion syndrome.
Additional Instructions:: Patient MUST be mechanically ventilated and MUST receive analgesia.
09/13/25 14:21
PTT Urgent
Prothrombin Time Urgent
Ventilator Initial Settings [RESP] Urgent
Tidal Volume: 500
Rate: 16
FIO2: 60
PEEP: 5
09/13/25 14:22
Add On- LAB Urgent
Tests Added?: triglycerides
09/13/25 14:57
Levetiracetam Injectable [Keppra] 1,000 mg IV NOW STA
09/13/25 15:10
Levetiracetam Injectable [Keppra] 1,000 mg IV NOW STA
09/13/25 15:12
NEUROLOGY CONSULT Urgent
Consulting Provider: Everardo Lujan
Was physician already notified: Yes
09/13/25 15:14
Arterial Blood Gas Urgent
%Oxygen/Room Air: ventilator
09/13/25 15:18
Ceribell [Rapid Point of Care EEG (ED/ICU ONLY)] Q1H
Indications for use:: Altered Mental Status
09/13/25 15:28
Levetiracetam Injectable [Keppra] 1,000 mg IV NOW STA
Abnormal Lab Results
09/13/25 09/13/25 09/13/25
14:07 14:21 15:14
WBC 12.2 H 10^3/uL
(4.8-10.8)
RBC 3.19 L 10^6/uL
(4.20-5.40)
Hgb 10.9 L g/dL
(12.0-16.0)
Hct 33.4 L %
(37.0-47.0)
MCV 104.7 H fL
(81.0-99.0)
MCH 34.2 H pg
(27.0-31.0)
MCHC 32.6 L g/dL
(33.0-37.0)
MPV 10.8 H fL
(7.4-10.4)
Abs Immat Gran (auto) 0.2 H 10^3/uL
(0-0.05)
Absolute Neuts (auto) 8.2 H 10^3/uL
(1.4-6.5)
Absolute Monos (auto) 1.2 H 10^3/uL
(0.1-0.6)
Immature Gran % 1.8 H %
(0-0.5)
Lymphocytes % 19.4 L %
(20.5-51.1)
Monocytes % 9.6 H %
(1.7-9.3)
APTT 21.7 L Sec
(23.4-35.0)
pCO2 29 L mmHg
(32-35)
pO2 193 H mmHg
(83-108)
HCO3 19.2 L mmol/L
(21-28)
ABG O2 Sat (Measured) 99.9 H %
(94-98)
Sodium 134 L mmol/L
(135-145)
Carbon Dioxide 16 L mmol/L
(22-30)
Creatinine 0.5 L mg/dL
(0.6-1.0)
Glucose 172 H mg/dl
(70-99)
AST 47 H U/L
(14-36)
ALT 45 H U/L
(0-35)
Total Protein 5.8 L g/dl
(6.3-8.2)
Albumin 3.3 L g/dl
(3.5-5.0)
09/13/25 14:07
09/13/25 14:07
Vital Signs
Initial and Last Documented VS:
Initial Vital Signs
Pulse Resp BP Pulse Ox
129 18 118/68 100
09/13/25 13:54 09/13/25 13:54 09/13/25 13:54 09/13/25 13:54
Last Documented Vital Signs
Temp Pulse Resp BP Pulse Ox
97.9 F 107 17 124/87 100
09/13/25 14:00 09/13/25 15:45 09/13/25 15:45 09/13/25 15:00 09/13/25 15:45
<Mar Lacey PA-C - Last Filed: 09/13/25 16:19>
Orders/Labs/Results
Orders:
Orders
09/13/25 13:53
Electrocardiogram (*1) Urgent
Reason for Study: Other
Other Reason for Exam: seizure
EKG- Treatment ONCE
09/13/25 13:57
Lorazepam [Ativan] 2 mg .ROUTE .STK-MED ONE
09/13/25 13:58
Lorazepam [Ativan] 2 mg IV NOW STA
09/13/25 14:01
Propofol 1,000,000 Mcg/100 ml [Diprivan] 1,000,000 mcg in 100 ml .ROUTE .STK-MED
09/13/25 14:07
Complete Blood Count/With Diff Urgent
Comprehensive Metabolic Panel Urgent
Triglycerides Urgent
Comment: ADD ON
09/13/25 14:12
Cardiac Monitoring- Treatment ONCE
0.9% Sodium Chloride 1000 ml [Nss] 1,000 ml IV BOLUS
CXR Port [CR Chest Portable - 1 View] Stat
Comment:
Reason For Exam: s/p intubation
Reason Study Needs to be Portable: Unable to Transport
09/13/25 14:13
CT Head W/o Iv Contrast Urgent
Comment:
Reason For Exam: status epilepticus, hx of brain mets
09/13/25 14:18
Propofol 1,000,000 Mcg/100 ml [Diprivan] 1,000,000 mcg in 100 ml IV NOW
Indication:: Light Sedation
Begin Infusion:: Now
Goal:: RASS 0 to -2
Maximum dose in mcg/kg/min:: 50
Initial dose based on RASS:: Yes
If RASS is:: +1 or pt hemodynamically unstable (SBP < 90mmHg), initiate at 10 mcg/kg/min
If RASS is:: +2, initiate at 20 mcg/kg/min
If RASS is:: greater than or equal to +3, initiate at 30 mcg/kg/min
Titration Instructions:: Titrate by 5-10 mcg/kg/min every 5 minutes until RASS 0 to -2 achieved.
Taper Instructions:: If RASS is at or below goal for 4 consecutive hours decrease infusion by
Taper Instructions:: 5-10 mcg/kg/min every 2 hours to off.
Over-sedation Instructions:: If CPOT 0-2 (at goal) AND RASS -3 to -5 (below goal) decrease sedative by
Over-sedation Instructions:: 50% first. If pain score remains at goal and RASS remains below goal in
Over-sedation Instructions:: 1 hour, decrease opioid infusion by 50%.
Notify provider:: immediately if patient exhibits signs/symptoms of propofol-related
Notify provider:: infusion syndrome.
Additional Instructions:: Patient MUST be mechanically ventilated and MUST receive analgesia.
09/13/25 14:21
PTT Urgent
Prothrombin Time Urgent
Ventilator Initial Settings [RESP] Urgent
Tidal Volume: 500
Rate: 16
FIO2: 60
PEEP: 5
09/13/25 14:22
Add On- LAB Urgent
Tests Added?: triglycerides
09/13/25 14:57
Levetiracetam Injectable [Keppra] 1,000 mg IV NOW STA
09/13/25 15:10
Levetiracetam Injectable [Keppra] 1,000 mg IV NOW STA
09/13/25 15:12
NEUROLOGY CONSULT Urgent
Consulting Provider: Everardo Lujan
Was physician already notified: Yes
09/13/25 15:14
Arterial Blood Gas Urgent
%Oxygen/Room Air: ventilator
09/13/25 15:18
Ceribell [Rapid Point of Care EEG (ED/ICU ONLY)] Q1H
Indications for use:: Altered Mental Status
09/13/25 15:28
Levetiracetam Injectable [Keppra] 1,000 mg IV NOW STA
Abnormal Lab Results
09/13/25 09/13/25 09/13/25
14:07 14:21 15:14
WBC 12.2 H 10^3/uL
(4.8-10.8)
RBC 3.19 L 10^6/uL
(4.20-5.40)
Hgb 10.9 L g/dL
(12.0-16.0)
Hct 33.4 L %
(37.0-47.0)
MCV 104.7 H fL
(81.0-99.0)
MCH 34.2 H pg
(27.0-31.0)
MCHC 32.6 L g/dL
(33.0-37.0)
MPV 10.8 H fL
(7.4-10.4)
Abs Immat Gran (auto) 0.2 H 10^3/uL
(0-0.05)
Absolute Neuts (auto) 8.2 H 10^3/uL
(1.4-6.5)
Absolute Monos (auto) 1.2 H 10^3/uL
(0.1-0.6)
Immature Gran % 1.8 H %
(0-0.5)
Lymphocytes % 19.4 L %
(20.5-51.1)
Monocytes % 9.6 H %
(1.7-9.3)
APTT 21.7 L Sec
(23.4-35.0)
pCO2 29 L mmHg
(32-35)
pO2 193 H mmHg
(83-108)
HCO3 19.2 L mmol/L
(21-28)
ABG O2 Sat (Measured) 99.9 H %
(94-98)
Sodium 134 L mmol/L
(135-145)
Carbon Dioxide 16 L mmol/L
(22-30)
Creatinine 0.5 L mg/dL
(0.6-1.0)
Glucose 172 H mg/dl
(70-99)
AST 47 H U/L
(14-36)
ALT 45 H U/L
(0-35)
Total Protein 5.8 L g/dl
(6.3-8.2)
Albumin 3.3 L g/dl
(3.5-5.0)
09/13/25 14:07
09/13/25 14:07
Vital Signs
Initial and Last Documented VS:
Initial Vital Signs
Pulse Resp BP Pulse Ox
129 18 118/68 100
09/13/25 13:54 09/13/25 13:54 09/13/25 13:54 09/13/25 13:54
Last Documented Vital Signs
Temp Pulse Resp BP Pulse Ox
97.9 F 107 17 124/87 100
09/13/25 14:00 09/13/25 15:45 09/13/25 15:45 09/13/25 15:00 09/13/25 15:45
Procedures
<Humza Hummel, DO - Last Filed: 09/13/25 14:25>
Intubations
Procedure completed by: Mar Lacey PA-C
Method of Intubation: glidescope
Tube size (cm): 7.0
Placement confirmed by: auscutation, CXR, capnography and direct visualization
Breath sounds after intubation: equal
Intubation complications: no complications
<Mar Lacey PA-C - Last Filed: 09/13/25 16:19>
MDM/Problems Addressed
Differential Diagnosis Includes:
55yoF presenting via EMS for new onset seizure. Received 7mg Versed prehospital. I was called to bedside by nursing staff for continued seizures. Patient actively seizing on my arrival to exam room with generalized tonic clonic movements and
nystagmus/eyelid fluttering. She is unresponsive to painful stimuli and GCS if 3.
Concern for status epilepticus. Discussed with who confirmed that patient is a full code. Patient intubated for airway protection. Dr. Hummel at bedside during intubation procedure. IV access obtained, OG tube placed, and she was initiated
on a propofol drip to burst suppression. Labs, EKG, and CT head obtained.
<Humza Hummel, DO - Last Filed: 09/13/25 14:25>
*Pulse Oximetry
SaO2: 100
Oxygen Mode of Delivery: Non-rebreather mask
*Critical Care Note
Total Time (30-74mins, 75-104mins- exclusive of procedures): 33 min
comment:
The high probability of a clinically significant, sudden or life threatening deterioration of the neurovascular system(s) required my full and direct attention, intervention and personal management. The aggregate critical care time was 33 minutes.
This time is in addition to time spent performing reported procedures but includes the following:
[x] Data Review and interpretation
[x] Patient assessment and monitoring of vital signs
[x] Documentation
[x] Medication orders and management
<Mar Lacey PA-C - Last Filed: 09/13/25 16:19>
*Pulse Oximetry
Patient hypoxic: no
*EKG
Interpreted by ED Provider?: Yes
EKG Intrepretation Date: 09/13/25
Heart Rate: 116
Rate: tachycardiac
Rhythm: sinus
[place]: normal axis
Interval: normal interval
QRS Pattern: normal QRS
Ischemia: no ischemia
<Mar Lacey PA-C - Last Filed: 09/13/25 16:19>
Update Note
Update Note:
Bicarb 16, likely secondary to seizure. Renal function stable and electrolytes normal. CT head shows treated intracranial metastatic disease with scattered calcifications. No hemorrhage, midline shift, or significant mass effect noted. 2 g IV
Keppra ordered for loading. Neurology consulted and Ceribell placed. Patient admitted for further management. Family updated at bedside.
ED Attending Note
<Humza Hummel DO - Last Filed: 09/13/25 14:25>
ED Attending Note
Patient seen and examined by attending physician: Yes
I performed the substantive portion of visit, reviewed & personally made and approve the management plan that is documented in note by myself or MICHAEL.: Yes
ED Attending Note:
I have seen and evaluated the patient with a [id number] encounter. I have spoken to the advance practicer provider and involved in the medical history, the physical exam, medical decision making.
Evaluation and management service: agree unless noted differently below.
Results interpretation: agree unless noted differently below.
Focused HPI: 55-year-old female presenting by EMS as status epilepticus. Patient had a seizure witnessed by family. EMS arrived and provided a total of 7 mg of Versed. On arrival, I was called to bedside because patient had active seizure
activity. Patient had active bilateral horizontal nystagmus with bilateral upper eyelid twitching. Patient is unresponsive and not responding to verbal or painful stimuli. Family indicating that patient has a history of breast cancer with
metastasis to the brain status post radiation. She is currently on chemotherapy.
Physical exam: Unresponsive, bilateral horizontal nystagmus with eyelid twitching.
Medical Decision Making: Given the concern for status epilepticus, patient immediately given 2 mg of IV Ativan. She had already received 7 mg of Versed. The PA quickly talk to the family as respiratory was called. It was confirmed that she is
full code. At this time, respiratory was ready. Patient intubated immediately. Patient placed on propofol to suppress further seizure activity. Will obtain CT head to rule out any evidence of brain mass versus bleed. Patient will ultimately
require admission for status epilepticus to the ICU. If there is any evidence of bleed or mass effect, patient may require transfer
-
Portions of this chart may have been created with voice recognition software.� Occasional wrong word or��sound alike� substitutions may have occurred due to the inherent limitations of voice recognition software.
Discharge Plan
Departure
Patient Disposition: Admit
Date of Disposition: 09/13/25
Time of Disposition: 15:19
Presentation/result/management discussed w/ accepting MD/DO: Hospitalist
Discharge Problem:
Status epilepticus
Prescriptions:
No Action
ondansetron HCl 8 mg Tablet
8 mg PO DAILYPRN PRN (Reason: n/v)
calcium carbonate [Calcium 500] 500 mg calcium (1,250 mg) Tablet,Chewable
500 mg PO DAILY
cholecalciferol (vitamin D3) 1,250 mcg (50,000 unit) Capsule
1,250 mcg PO FR
pyridoxine (vitamin B6) 100 mg Tablet
100 mg PO DAILY
magnesium oxide 200 mg magnesium Tablet
200 mg PO DAILY
Patient's Own Insulin Pump
1 sliding scale dose SC DIRECTED
Rx Instructions:
insulin aspart (Novolog)
dexamethasone 4 mg Tablet
8 mg PO DAILYPRN PRN (Reason: with infusion every 3 weeks)
polyethylene glycol 3350 [Miralax] 17 gram/dose Powder
17 g PO DAILY
bisacodyl 5 mg Tablet
5 mg PO DAILYPRN PRN (Reason: constipation)
Referrals:
NONE,* [Family Provider, Internal Medicine]
Interventions
Interventions:
*General Assessment Last Done: 09/13/25 13:54
*Neglect/Abuse Screening Last Done: 09/13/25 13:54
*ED COVID-19 Vaccine History Last Done: 09/13/25 13:54
*ED Influenza Vaccine History Last Done: 09/13/25 13:54
[facility] Fall Risk Assessment Tool Last Done: 09/13/25 14:19
*Risk Screen - Suicide (C-SSRS) Last Done: 09/13/25 13:54
ED- Cardiac Assessment Last Done: 09/13/25 13:54
ED- Neurological Assessment Last Done: 09/13/25 14:13
ED- Pulmonary Assessment Last Done: 09/13/25 14:13
Discharge Date and Time
Print Language: [place]
[2025-09-13 14:24] LABS: AST (SGOT) 47 U/L (14-36); Albumin 3.3 g/dl (3.5-5.0); Alkaline Phosphatase 90 U/L (38-126); Blood Urea Nitrogen 8 mg/dl (7-17); Calcium 8.4 mg/dl (8.4-10.2); Carbon Dioxide 16 mmol/L (22-30); Chloride 105 mmol/L (98-107); Glucose 172 mg/dl (70-99); Potassium 3.9 mmol/L (3.5-5.1); Sodium 134 mmol/L (135-145); Total Protein 5.8 g/dl (6.3-8.2); eGFR > 60.00
[2025-09-13] MEDS: DIPRIVAN 100 IV ×3 (14:24→23:59)
[2025-09-13 14:38] LABS: APTT 21.7 Sec (23.4-35.0); INR 0.98; PT 12.8 Sec (11.4-14.6)
[2025-09-13 14:43] LABS: ALT (SGPT) 45 U/L (0-35)
[2025-09-13 14:53] LABS: Triglycerides 63 mg/dl (10-149)
[2025-09-13] MEDS: KEPPRA 1000 MG IV ×4 (15:03→22:52)
--- NOTE | 2025-09-13 15:16 | CON.NEURO ---
Neuro Assessment/Plan
Assessment
Acute onset change mental status with generalized tonic-clonic movements in a patient with previously diagnosed metastatic breast cancer, gamma knife procedures and recent right temporal craniotomy.
Plan
As the patient's initial event was longer than 10 minutes, most likely consistent with status epilepticus, not currently evident by use of the Ceribell device
Continue use of Ceribell device until tomorrow at which time patient may be evaluated for discontinuance of intubation
Continue sedation until patient is to be extubated
Patient loaded with levetiracetam, continue at 1000 mg twice a day
Not clear patient would benefit from repeated neuroimaging at this time
We will follow
Consultation
Order
Date of Consultation: 09/13/25
Requesting Provider: Emergency department provider
Reason for Consult: Status epilepticus
Subjective/Objective
Subjective Data
Date of Service: September 13, 2025
Adapted from prior inpatient notes:
'Date of Consultation: 06/26/24
Reason for Consult: right lower extremity weakness.
HPI: This is a 54-year-old woman who presented to [facility] on June 25, 2024 with right leg weakness. According to the patient she developed acute right lower monoparesis upon awakening on the day of the presentation. No
reports of sensory deficits, involvement of the right arm, face, change in speech or headache.The patient states that her right leg weakness has been improving. She did receive 8 mg of dexamethasone earlier today in the morning
This is a 54-year-old female who presented to on June 25, 2024 with right leg weakness. According to the patient she developed acute right lower monoparesis upon awakening on the day of the presentation. Symptoms greatly improved
following IV Decadron administration.
-Outpatient Brain MRI(06/14/2024) showed interval increase in the left superior frontal gyrus lesion and edema from 11/9 to 15/10 mm.
-MRI lumbar spine 06/26/24: There are diffuse enhancing osseous metastasis throughout the sacrum, lumbar spine and lower thoracic spine without associated epidural extension or acute pathologic fracture. There is old 10% compression fracture of the
superior endplate of L5. Mild endplate deformities at the superior and inferior endplates of T12 and L4 as well as at the inferior endplates of L2 are more likely Schmorl's nodes than old fractures.
Minimal posterior bulging of the L4-5 intervertebral disc is associated with minimal impingement upon the anterior aspect of the thecal sac at the level of exit of the L5 nerve roots. There is degenerative disc disease at L4-5 with moderate loss of
disc stature associated with moderate bilateral L5 foraminal stenosis
I. 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
II. State IV breast CA.
III. Ambulatory dysfunction.
IV. Lumbar spine with DDD changes.
Plan
-Seizure precautions
-Continue Dexamethasone 4 mg Q6h IV with close glycemic monitoring and GI prophylaxis
-Brain MRI w/wo jacob to rule out an acute infarct.
-ASA 81 mg QD.'
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 Off of dexamethasone and Levetiracetam since ~ second week of July. Patient was subsequently without symptomatology. On
the day of admission, the patient was at, returned home physical therapy then became aphasic, stood and fell 13:15.
She was seen at that time to have involuntary movements of left face, generalized tonic-clonic bilateral leg and tonic (unclear side) arm movements continuously, decreased then increased, unresponsive. Unclear bladder control, ? bowel control loss.
Objective Data
Vital Signs
Pulse Resp BP Pulse Ox
127 20 114/76 100
09/13/25 14:00 09/13/25 14:00 09/13/25 14:00 09/13/25 14:16
Lab Results
09/13/25 14:07
09/13/25 14:07
PT 12.8 Sec (11.4-14.6) 09/13/25 14:21
INR 0.98 09/13/25 14:21
APTT 21.7 Sec (23.4-35.0) L 09/13/25 14:21
Sodium 134 mmol/L (135-145) L 09/13/25 14:07
Potassium 3.9 mmol/L (3.5-5.1) 09/13/25 14:07
BUN 8 mg/dl (7-17) 09/13/25 14:07
Glucose 172 mg/dl (70-99) H 09/13/25 14:07
Calcium 8.4 mg/dl (8.4-10.2) 09/13/25 14:07
Patient Allergies
No Known Allergies Allergy (Verified 06/25/24 17:49)
Review of Systems
-
Unable to obtain full review of systems at this time due to: Patient Intubation and Lethargy
History Source: Patient
All other systems: Reviewed and negative
Physical Exam
-
General: No Apparent Distress, Intubated and Appears Stated Age
Eyes: OU Absent Papilledema, Able to visualize OU, Round OU and [place] Conjunctivae
HEENT: Anicteric and Moist Mucous Membranes
Neck: Full Range of Motion
Respiratory: No Dyspnea
Cardiac: No JVD
GI: Non-distended
Skin: Unremarkable
Extremities: No Clubbing, No Cyanosis and No Edema
Psych: Unable to Assess
Extended Neurological Exam
Mood & Affect: Unable to Assess
Attention Span & Concentration: Unresponsive to Verbal Stimuli; Negative Awake, Alert, Interactive or Unresponsive to Physical Stimuli (Minimal withdrawal to painful stimuli in bilateral upper extremities distally)
Memory: Unable to Assess
Tremor: Hand Tremor Absent and Head Tremor Absent
Involuntary Movement: None
Speech: Unable to Assess
Cranial Nerve II: Left Eye: Pupillary Reactivity Unremarkable, Pupillary Size Unremarkable and Unable to Assess Visual [place]valle
Cranial Nerve II: Right Eye: Pupillary Reactivity Unremarkable, Pupillary Size Unremarkable and Unable to Assess Visual [place]le
Cranial Nerves III, IV, : Extraocular Movement: Absent Doll's Eyes and Unable to Assess (Ptosis)
Cranial Nerve V: Facial Sensation: Unable to Assess
Cranial Nerve VII: Facial Symmetry: Normal Facial Symmetry
Cranial Nerves IX, X: Palate Movement: Unable to Assess
Cranial Nerve XI: Shoulder Shrug: Unable to Assess
Cranial Nerve XII: Tongue Protusion: Unable to Assess
Muscle Strength, Overall: Spontaneously Moves (Bilateral upper extremities, minimally)
Muscle Bulk & Tone: Bulk Unremarkable and Tone Unremarkable
Pronator Drift: Unable to Assess
Deep Tendon Reflexes: Trace Throughout
Cold Sensation: Unable to Assess
Vibration Sensation: Unable to Assess
Touch Sensation: Negative Withdrawal to Pain
Coordination: Unable to Assess
Babinski Sign: Absent Bilaterally
Gait & Station: Unable to Assess
Data Reviewed
-
CT Head: Report Reviewed
Labs: Report Reviewed
Reviewed with: Physician, Nurse and Family
Old Records: Summarized
Medications
-
Home Medications
�Medication �Instructions �Recorded
calcium carbonate (Calcium 500) 500 mg PO DAILY 06/25/24
cholecalciferol (vitamin D3) 1,250 1,250 mcg PO FR 06/25/24
mcg (50,000 unit) capsule
esomeprazole magnesium 20 mg 20 mg PO DAILY 06/25/24
capsule,delayed release (Nexium
24HR)
ondansetron HCl 8 mg tablet 8 mg PO DAILY 06/25/24
ribociclib 600 mg/day (200 mg x 3) 600 mg PO DAILY 06/25/24
tablets (Kisqali)
Patient's Own Insulin Pump 1 sliding scale dose SC DIRECTED 06/26/24
insulin aspart U-100 100 unit/mL 1 sliding scale dose SC DIRECTED 06/26/24
subcutaneous solution
magnesium oxide 200 mg PO DAILY 06/26/24
pyridoxine (vitamin B6) 100 mg 100 mg PO DAILY 06/26/24
tablet
dexamethasone 4 mg tablet 4 mg PO Q6H 20 days #80 tabs 06/27/24
Past History
Past History
ED Past Medical History: Cancer (Breast), IDDM and Other (Gamma knife therapy to multiple lesions in brain); Negative HTN or Hypercholesterolemia
ED Past Surgical History: Brain (Left cerebellar resection, right temporal lobe resection); Negative Cardiac
Social History
Tobacco: Non-smoker
Alcohol: None
Drug: None
Personal:
Living: with family
Employment: Employed
Family History
Family History: Hypertension
[2025-09-13 15:23] LABS: B.E. -4.2 mmol/L; HCO3 19.2 mmol/L (21-28); O2 Saturation % 99.9 % (94-98); PCO2 29 mmHg (32-35); PO2 193 mmHg (83-108)
--- NOTE | 2025-09-13 15:56 | HPS.HSE ---
Family Physician
-
Family Physician: * NONE
Chief Complaint
-
Seizure, unresponsive
History of Present Illness
55-year-old female from physical therapy office at 1300 became aphasic, stood and fell at 1315. She had tonic-clonic movements of left face bilateral legs which increased and patient became unresponsive unclear if bowel or bladder incontinence. In
the ER she was noted to be in status epilepticus requiring intubation, propofol, 2 g Keppra infusion she has history of stage IV metastatic breast cancer to brain, lumbar sacral thoracic spine. She is status post brain mets 2022 with craniotomy
tumor removal by Dr. Pagan followed by radiation 07/28/2025 at [facility] and radiation necrosis. She is currently on chemotherapy every 3 weeks. She was recently weaned off steroids and due for follow-up CT head on 09/25/2025. She is currently in
physical therapy for right leg weakness. denies fever chills , cp, palpitations, sob, abd pain Nausea , vomiting diarrhea. Pt has insulin pump left abdomen infusing with current BS 200's.
She has past medical history of stage IV breast cancer Dx 2019 then 2022 mets to brain, liver, sacrum, lumbar, thoracic spine hip, status post brain mets 2022 with craniotomy, tumor removal, recent brain radiation 07/28/2025 at [facility], IDDM on insulin
pump Dx age 35
Medical History
Past Medical History
Past Medical History: Reports Other
Additional Past Medical History:
stage IV breast cancer Dx 2019 then 2022 mets to brain, liver, sacrum, lumbar, thoracic spine hip, status post brain mets 2022 with craniotomy, tumor removal
recent brain radiation 07/28/2025 at
IDDM on insulin pump Dx age 35�EVELYN
Past Surgical History: Reports Other
Additional Past Surgical History:
brain mets 2022 with craniotomy tumor removal by Dr. Pagan followed by radiation 07/28/25 at [facility] and radiation necrosis
Port left upper chest wall
History of prior lumpectomy with lymph nodes right breast with right lymph node dissection
Social History
Tobacco: Non-smoker
Alcohol: None
Drug: None
Personal:
Living: With Family ( Josue)
Employment: Disabled
Family History
Family History: Not pertinent
Allergies / Home Medications
Allergies reflects when Allergies were last updated in [facility].
Home Medications with original date entered in [facility]
Allergy/Medication List:
Allergies
Allergy/AdvReac Type Severity Reaction Status Date / Time
No Known Allergies Allergy Verified 06/25/24 17:49
Home Medications
calcium carbonate (Calcium 500) 500 mg PO DAILY 06/25/24
cholecalciferol (vitamin D3) 1,250 mcg (50,000 unit) capsule 1,250 mcg PO FR 06/25/24
ondansetron HCl 8 mg tablet 8 mg PO DAILYPRN PRN n/v 06/25/24
Patient's Own Insulin Pump 1 sliding scale dose SC DIRECTED 06/26/24
magnesium oxide 200 mg PO DAILY 06/26/24
pyridoxine (vitamin B6) 100 mg tablet 100 mg PO DAILY 06/26/24
bisacodyl 5 mg tablet 5 mg PO DAILYPRN PRN constipation 09/13/25
dexamethasone 4 mg tablet 8 mg PO DAILYPRN PRN with infusion every 3 weeks 09/13/25
polyethylene glycol 3350 17 gram/dose oral powder (Miralax) 17 g PO DAILY 09/13/25
Review of Systems
-
History Source: Family ( Josue at bedside along with 2 children)
A 12 point ROS was completed and negative except as noted: Yes
Constitutional: Denies Fever or Chills
Respiratory: Denies Cough or Trouble Breathing
Abdomen/GI: Denies Vomiting or Diarrhea
Musculoskeletal: Denies Edema
Skin: Denies Rash
Neurological: Reports Weakness (Chronic right leg)
Hematologic/Lymphatic: Denies Bleeding or Bruising
Physical Exam
Vital Signs
Vital Signs
Temp Pulse Resp BP Pulse Ox
97.9 F 107 17 124/87 100
09/13/25 14:00 09/13/25 15:45 09/13/25 15:45 09/13/25 15:00 09/13/25 15:45
Physical Exam
General: Intubated; No Fever or Chills
HEENT: NormoCephalic, Anicteric and Oxygen (Patient on current ventilator)
Respiratory: Clear; No Wheezes, Rales or Rhonchi
Cardiac: S1/S2 and Regular Rhythm; No Murmur, Rub, Gallop or Peripheral Edema
Breast: Deferred by me
GI: Soft, Non Tender, Non Distended, Normal Bowel Sounds and No Hepatosplenomegaly
Rectal: Deferred by Provider
Genito-urinary: Deferred by me
Musculoskeletal: No Clubbing, No Cyanosis and No Edema
Skin: Warm and Dry; No Rash
Neuro: Sedated (On current vent is attempting to move right arm to pull at tube, sedation increased, soft wrist restraint to be applied)
Psych: Other (Intubated)
Laboratory Results
-
09/13/25 14:07
09/13/25 14:07
Laboratory Results
PT 12.8 Sec (11.4-14.6) 09/13/25 14:21
INR 0.98 09/13/25 14:21
APTT 21.7 Sec (23.4-35.0) L 09/13/25 14:21
pH 7.43 (7.35-7.45) 09/13/25 15:14
pCO2 29 mmHg (32-35) L 09/13/25 15:14
pO2 193 mmHg (83-108) H 09/13/25 15:14
HCO3 19.2 mmol/L (21-28) L 09/13/25 15:14
Total Bilirubin 0.4 mg/dl (0.2-1.3) 09/13/25 14:07
AST 47 U/L (14-36) H 09/13/25 14:07
ALT 45 U/L (0-35) H 09/13/25 14:07
Alkaline Phosphatase 90 U/L (38-126) 09/13/25 14:07
Data Reviewed
-
CT Scan: Report Reviewed by me
Lab Data: Labs Reviewed by me
Impression/Plan
-
Impression/plan:
Admit to ICU
#Status epilepticus
#History of STAGE 4 BREAST CANCER mets to liver, brain/sacrum, lumbar, thoracic spine
#status post Radiation/ Frontal lobe resection 07/28/2025/radiation necrosis
Patient currently on third line chemotherapy at [facility] original Dx 2019 follows with Bambi Garcia ONC
#Port left upper chest wall
- Continue ventilator support
- IV propofol for sedation
-Patient attempting to pull out ET tube
- Consult meat hanger
- Consult neurology
- IV Keppra 2 g now then, Keppra 1000 mg twice daily
- Continue dexamethasone 4 mg every 6 hours IV with blood sugar control
- Seizure precautions
- Brain MRI with and without jacob to rule out acute infarct
- Aspirin 81 mg daily
- PT/OT/case management consult
CT head:Treated intracranial metastatic disease with scattered intraparenchymal calcifications, greatest in the anterior left frontal lobe.
Encephalomalacia in the right temporal lobe and in the left cerebellum with overlying craniotomy defects from previously resected disease.
CXR: Endotracheal tube in the lower thoracic with tip 1.4 cm above consuelo,
left Port-A-Cath cath tip in cavoatrial junction
no focal consolidation pleural effusion or pneumothorax
surgical clips right axilla
subacute or chronic fracture with callus at the posterior lateral left seventh rib
#IDDM late onset age 35
Blood sugar 172
Continue current insulin pump infusion
- Accu-Cheks every 2 hours with sliding scale coverage
- Diabetic FARM FACILITY MANAGER is consulted
#Chronic anemia�macrocytic
Hgb 10.9 appears baseline
#Chronic transaminitis mild secondary to liver mass
Labs appear near baseline
Follow CMP
#Old compression fracture 10% L5, endplate deformities T12 L4
DVT prophylaxis
Subcu Lovenox
Full code
--- NOTE | 2025-09-13 16:10 | CON.INTV ---
Consultation
Consultation Request
Date/Time Consultation Requested: 09/13/2025
Date/Time Consultation Performed: 09/13/2025
Medical History
-
Chief Complaint: Seizures
History of Present Illness:
Patient is a 55-year-old female currently intubated, mechanically ventilated and sedated. History was obtained from review of records and discussion with other healthcare providers. Reportedly patient has history of metastatic breast cancer
including brain mets s/p craniotomy, tumor removal as well as radiation therapy with biopsy suggestive of radiation necrosis in 2022. Patient was at physical therapy office where she became aphasic followed by a fall which eventually progressed to
a tonic-clonic seizures. In the emergency room patient was noted to be in status epilepticus and required intubation. She was started on propofol along with IV Keppra and neurology service was consulted. Decision was made to admit her to ICU and
supply crib attendant consultation was requested for further input.
Past Medical History
Past Medical History: Reports Other
Additional Past Medical History:
stage IV breast cancer Dx 2019 then 2022 mets to brain, liver, sacrum, lumbar, thoracic spine hip, status post brain mets 2022 with craniotomy, tumor removal
recent brain radiation 07/28/2025 at
IDDM on insulin pump Dx age 35�EVELYN
Past Surgical History: Reports Other
Additional Past Surgical History:
brain mets 2022 with craniotomy tumor removal by Dr. Pagan followed by radiation 07/28/25 at [facility] and radiation necrosis
Port left upper chest wall
History of prior lumpectomy with lymph nodes right breast with right lymph node dissection
Social History
Tobacco: Non-smoker
Alcohol: None
Drug: None
Personal:
Living: With Family ( Josue)
Employment: Disabled
Family History
Family History: Not pertinent
Allergies / Home Medications
Allergies
Allergy/AdvReac Type Severity Reaction Status Date / Time
No Known Allergies Allergy Verified 06/25/24 17:49
Home Medications
�Medication �Instructions �Recorded �Confirmed �Last Taken �Type
calcium carbonate (Calcium 500) 500 mg PO DAILY 06/25/24 09/13/25 09/13/25 History
cholecalciferol (vitamin D3) 1,250 1,250 mcg PO FR 06/25/24 09/13/25 09/13/25 History
mcg (50,000 unit) capsule
ondansetron HCl 8 mg tablet 8 mg PO DAILYPRN PRN n/v 06/25/24 09/13/25 Unknown History
Patient's Own Insulin Pump 1 sliding scale dose SC DIRECTED 06/26/24 09/13/25 Unknown History
magnesium oxide 200 mg PO DAILY 06/26/24 09/13/25 09/13/25 History
pyridoxine (vitamin B6) 100 mg 100 mg PO DAILY 06/26/24 09/13/25 09/13/25 History
tablet
bisacodyl 5 mg tablet 5 mg PO DAILYPRN PRN constipation 09/13/25 09/13/25 09/13/25 History
dexamethasone 4 mg tablet 8 mg PO DAILYPRN PRN with infusion 09/13/25 09/13/25 09/13/25 History
every 3 weeks
polyethylene glycol 3350 17 17 g PO DAILY 09/13/25 09/13/25 09/13/25 History
gram/dose oral powder (Miralax)
Review of Systems
-
Unable to Obtain full review of systems at this time due to: Patient Intubation
Vitals / Labs / Diagnostic Testing
Vital Signs
Temp Pulse Resp BP Pulse Ox
97.9 F 111 18 128/83 99
09/13/25 14:00 09/13/25 16:00 09/13/25 16:00 09/13/25 16:00 09/13/25 16:00
Lab Data
09/13/25 14:07
09/13/25 14:07
Laboratory Results
09/13/25 09/13/25
14:21 15:14
PT 12.8
INR 0.98
APTT 21.7 L
pH 7.43
pCO2 29 L
pO2 193 H
HCO3 19.2 L
O2 Delivery Level
Diagnostic Testing:
Physical Exam
-
HEENT: Normocephalic
Cardiovascular: S1/S2
Respiratory: Clear
GI: Soft and Non Distended
Neurology: Other (Currently sedated )
Skin: Warm
General: Comfortable
Assessment
-
#1. Acute respiratory failure in the setting of Status epilepticus
- Inability to protect airway leading to intubation
- ABG 7.43//193, continue Volume AC
- CXR without acute pulmonary process
- Known h/o metastatic breast cancer with brain mets
- Neurology service on case
- Initiated on Keppra IV, PRN Ativan, portable EEG. Propofol for sedation while intubated. Add Fentanyl pushes/infusion as needed with h/o spinal metastasis.
- Monitor closely in ICU
#2. H/o metastatic breast cancer, 2022 (Liver, spinal and brain mets)
- Prior history of brain metastasis s/p radiation
- Recent resection of brain lesions, 06/2025, reportedly radiation necrosis
- Hold off steroids for now.
Other medical diagnoses:
- IDDM. insulin infusion
- Thoracic/Lumbar/Sacral spine metastasis. PRN Fentanyl for pain
DVT prophylaxis. Lovenox 40 s.c.
Critical Care time 60 mins -- The patient is admitted for acute critical illness for the treatment of vital organ failure and/or prevention of further life-threatening conditions. Total care includes time spent in review of history, physical exam,
medications, hemodynamic/ventilator parameters, laboratory data, imaging and discussion with house staff, pharmacy, respiratory therapy, torsion spring coiling machine setter, and nursing.
Data:
CT Head 08/2025: Treated intracranial metastatic disease with scattered intraparenchymal calcifications, greatest in the anterior left frontal lobe. Encephalomalacia in the right temporal lobe and in the left cerebellum with overlying craniotomy
defects from previously resected disease.
CXR 08/2025: No acute pulmonary process identified.
ECHO 12/2019: Normal left ventricular chamber size. Normal left ventricular wall thickness.
Normal left ventricular systolic function. Left ventricular ejection fraction
is 55-60%. Normal diastolic function. GLS -19.4%.
Normal right ventricular size and function.
No significant valvular disease.
Compared to the previous echo 12/16/2019 there is no significant change.
--- NOTE | 2025-09-13 16:27 | W.PN.UPDATE ---
Update Note
Progress Note Update
I could not get any information from the patient is intubated and sedated
Information gathered by chart review and speaking with the ER staff.
This note serves as an addendum to the H&P by research associate quality control qc MICHAEL�
Fanny Norwich
HPI�
55F
PHX IV Breast CA, Mets dz ( brain, sacrum, lumbar, thoracic spine) IDDM on pump
Seen at ER :
- sent in from PT office at 1300 became aphasic, stood and fell at 1315
- witnessed tonic-clonic movements of left face bilateral legs which increased and patient became unresponsive
- unclear if bowel or bladder incontinence.
In the ER she was noted to be in status epilepticus requiring intubation, propofol, 2 g Keppra infusion
- S/P Brain mets 2022 with craniotomy tumor removal by Dr. 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
- currently on chemotherapy every 3 weeks.
- recently weaned off steroids and due for follow-up CT head on 09/25/2025
Relevant VS
Temp Pulse Resp BP Pulse Ox
97.9 F 111 18 128/83 99
09/13/25 14:00 09/13/25 16:00 09/13/25 16:00 09/13/25 16:00 09/13/25 16:00
PE
Gen: intubated and sedated
HEENT: symmetric
Neck: supple
Lungs: CTA
Cor: RRR S1 S2
Abdomen:�benign
SOCIAL SERVICE ASSISTANT: sedated
MS: no edema
Psych: sedated , intubated
Relevant Data
09/13/25 09/13/25 09/13/25
14:07 14:21 15:14
WBC 12.2 H
RBC 3.19 L
Hgb 10.9 L
Hct 33.4 L
MCV 104.7 H
MCH 34.2 H
MCHC 32.6 L
MPV 10.8 H
Abs Immat Gran (auto) 0.2 H
Absolute Neuts (auto) 8.2 H
Absolute Monos (auto) 1.2 H
Immature Gran % 1.8 H
Lymphocytes % 19.4 L
Monocytes % 9.6 H
APTT 21.7 L
pCO2 29 L
pO2 193 H
HCO3 19.2 L
ABG O2 Sat (Measured) 99.9 H
Sodium 134 L
Carbon Dioxide 16 L
Creatinine 0.5 L
Glucose 172 H
AST 47 H
ALT 45 H
Total Protein 5.8 L
Albumin 3.3 L
CXR:
Endotracheal tube in the lower thoracic with tip 1.4 cm above consuelo,
left Port-A-Cath cath tip in cavoatrial junction
no focal consolidation pleural effusion or pneumothorax
surgical clips right axilla
subacute or chronic fracture with callus at the posterior lateral left seventh rib
HCT
Treated intracranial metastatic disease with scattered intraparenchymal calcifications, greatest in the anterior left frontal lobe.
Encephalomalacia in the right temporal lobe and in the left cerebellum with overlying craniotomy defects from previously resected disease.
06/27/34 MRI BRAIN
Within the anterior left frontal lobe white matter, there is a 1.5 cm peripherally enhancing lesion which has significantly increased in size compared to previous MRI, previously measuring 4 mm. Significant interval increase in white matter edema in
the anterior left frontal lobe with some loss of definition of adjacent sulci as a result of edema.
Within the white matter of the posterior left frontal lobe, there is a 1.6 cm focus of peripheral enhancement, increased from examination of August 2023 when it measured 10 mm. Interval increase in adjacent white matter edema within the posterior
left frontal lobe and extending into the anterior left parietal lobe.
06/26/24 MRI Lumbar Spine
1). There are diffuse enhancing osseous metastasis throughout the sacrum, lumbar spine and lower thoracic spine without associated epidural extension or acute pathologic fracture
2). There is old 10% compression fracture of the superior endplate of L5
3).Mild endplate deformities at the superior and inferior endplates of T12 and L4 as well as at the inferior endplates of L2 are more likely Schmorl's nodes than old fractures.
4). Minimal posterior bulging of the L4-5 intervertebral disc is associated with minimal impingement upon the anterior aspect of the thecal sac at the level of exit of the L5 nerve roots
5).There is degenerative disc disease at L4-5 with moderate loss of disc stature associated with moderate bilateral L5 foraminal stenosis
Last hospitalist admission: 06/26/24 - 06/27/24
Principal Discharge diagnosis :
Right lower limb weakness secondary to Stage 4 breast cancer mets to brain in [place].
ASSESSMENT & PLAN
Witnessed Sz suspect status epilepticus
HX mets to brain/sacrum, lumbar, thoracic spine from IV Breast CA
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
- Intubated at ER t protect AW
- c/w Vent support
- IV propofol for sedation
- IV Keppra 2 g now then, Keppra 1000 mg twice daily
- c/w IV dexamethasone 4 mg q6h IV
- Closly monitor BG control
- Seizure precautions
- Brain MRI with and without jacob to rule out acute infarct
- Aspirin 81 mg daily
- Consult uptwister tender and neurologist
- PT/OT/case management consult
IDDM
- DM PHP SOFTWARE ENGINEER consult for insulin pump management
Chronic anemia�macrocytic
Hgb 10.9 appears baseline
DVT PPX - lovenox sq
Full code
ICU
Total Critical Care Time_50___ minutes. I was immediately available to the patient and staff. I personally examined, reviewed labs, diagnostic images/reports, interpretations, treatment plans, discussed patient care with other providers and
family or caregivers (if patient is unable to make decisions), entered orders as appropriate and documented the medical record.
--- NOTE | 2025-09-13 17:47 | PTCARENOTE ---
Rec'd pt. from ED
Intubated / Sedated --> See Titration worksheet for details.
Tolerating vent settings, Pulling volumes.
Anicteric appearing, Normocephalic, purposeful movements towards tube, no seizure activity noted upon arrival to ICU.
Sinus tach w.o ectopy, normotensive, normothermic.
Insulin pump removed placed bedside, to start glycemic protocol.
Cont. ceribell.
[2025-09-13] MEDS: SUBLIMAZE 100 IV ×2 (17:58→19:27)
[2025-09-13 18:06] LABS: Glucose - Point of Care 162 mg/dl (70-99)
[2025-09-13] MEDS: NOVOLIN R INSULIN INFUSION 100 IV (18:12)
[2025-09-13] MEDS: LOVENOX 40 MG SC (18:14)
--- NOTE | 2025-09-13 18:28 | PTCARENOTE ---
Family took home insulin pump.
Glycemic protocol started per clinical pharm.
--- NOTE | 2025-09-13 19:13 | PTCARENOTE ---
Received pt from day shift RN. Pt sedated and intubated, withdrawals sluggishly to pain. Pupils 5, equal, reactive. No apparent seizure activity. Febrile, temp 100.8. ST HR 110-120s, BPs 110s-140s/70-80s. Intubated 7.0 ET, 23@ lip, rate 16, vt 500,
peep 5, 30%, pulling vol 350-450, lungs are clr. Minimal inline and oral secretions, clr. Cervantes in place, draining clr, yellow urine, og 65@ the lip, LIWS, normoactive bowel sounds. Skin grossly intact. insulin pump removed by day shift RN, CGM on L
shoulder. Port accessed by IV team, PIV L arm placed by IV team. Prop, insulin, fentanyl, NSS infusing per orders. Seizure precautions in place. See flowsheet for further documentation.
[2025-09-13 19:44] LABS: Glucose - Point of Care 92 mg/dl (70-99)
[2025-09-13] MEDS: TYLENOL ORAL SOLUTION 650 MG TUBE (20:13)
[2025-09-13 20:50] LABS: Glucose - Point of Care 85 mg/dl (70-99)
[2025-09-13] MEDS: SUBLIMAZE 50 MCG IV ×2 (21:02→21:45)
[2025-09-13 21:42] LABS: Glucose - Point of Care 122 mg/dl (70-99)
[2025-09-13 22:17] LABS: Glucose - Point of Care 122 mg/dl (70-99)
--- NOTE | 2025-09-13 23:04 | PTCARENOTE ---
Pt reassessment unchanged, PRN fentanyl given for restlessness/agitation, inc fent and prop gtt. Remains ST 100-120, temp slightly improved w/PO Tylenol, now 100.2. No seizure activity noted. See flowsheet for further documentation.
[2025-09-13 23:12] LABS: Glucose - Point of Care 134 mg/dl (70-99)
[2025-09-14] VITALS (30 sets, daily range): BP systolic 84–129; BP diastolic 50–87; BMI 20.2
[2025-09-14] MEDS: DEXTROSE 50% SYRINGE 12.5 GRAMS IV
[2025-09-14 00:11] LABS: Glucose - Point of Care 136 mg/dl (70-99)
[2025-09-14] MEDS: TYLENOL ORAL SOLUTION 650 MG TUBE (00:21)
[2025-09-14 02:03] LABS: Glucose - Point of Care 164 mg/dl (70-99)
--- NOTE | 2025-09-14 03:12 | PTCARENOTE ---
Pt reassessment unchanged, now afebrile, SR-ST 90-110s, AM labs sent.
[2025-09-14 03:27] LABS: Hematocrit 30.6 % (37.0-47.0); Hemoglobin 10.0 g/dL (12.0-16.0); Mean Corp Hgb Conc. 32.7 g/dL (33.0-37.0); Mean Corpuscular Volume 104.1 fL (81.0-99.0); Nucleated Red Blood Cells % 0 %; Platelet Count 184 10^3/uL (130-400); Red Cell Dist. Width 14.1 % (11.5-14.5)
[2025-09-14 04:06] LABS: Glucose - Point of Care 194 mg/dl (70-99)
[2025-09-14 04:08] LABS: ALT (SGPT) 38 U/L (0-35); AST (SGOT) 57 U/L (14-36); Albumin 2.6 g/dl (3.5-5.0); Alkaline Phosphatase 75 U/L (38-126); Blood Urea Nitrogen 5 mg/dl (7-17); Calcium 7.7 mg/dl (8.4-10.2); Carbon Dioxide 21 mmol/L (22-30); Chloride 111 mmol/L (98-107); Estimated Creatinine Clearance 96 ml/min; Glucose 180 mg/dl (70-99); HDL Cholesterol 73 mg/dl; LDL Cholesterol, Calculated 69 mg/dl; Potassium 3.4 mmol/L (3.5-5.1); Sodium 135 mmol/L (135-145); Total Protein 4.9 g/dl (6.3-8.2); Very Low Density Lipoprotein 15 mg/dl (0-30); eGFR > 60.00
[2025-09-14] MEDS: KCL ELIXIR 40 MEQ TUBE (04:27)
[2025-09-14 04:46] LABS: B.E. -1.4 mmol/L; HCO3 20.1 mmol/L (21-28); O2 Saturation % 99.1 % (94-98); PCO2 24 mmHg (32-35); PO2 174 mmHg (83-108)
[2025-09-14 05:12] LABS: Glucose - Point of Care 154 mg/dl (70-99)
[2025-09-14] MEDS: DIPRIVAN 100 IV (05:47)
[2025-09-14 06:12] LABS: Glucose - Point of Care 109 mg/dl (70-99)
[2025-09-14 07:11] LABS: Glucose - Point of Care 77 mg/dl (70-99)
--- NOTE | 2025-09-14 07:28 | W.RAPID.EEG ---
Rapid EEG
-
Procedure Date: 09/13/25
Patient Status: Inpatient
Results:
Impression:
Absence of status epilepticus
Recording Information:
Diagnostic Recording Time: 11:30:00 (690 minutes)
Recording 1: [email or web address]
Start Time: Sep 13, 2025 19:52 PM End Time: Sep 14, 2025 07:22 AM
Recording Technique: This EEG was obtained using a 10 lead, 8 channel system positioned circumferentially without any parasagittal coverage (rapid EEG). Computer selected EEG is reviewed as well as background features and all clinically significant
events. Clarity algorithm utilized and implemented to provide analysis of underlying activity and seizure detection used to facilitate reading. ICD-10 Code [id number]
Clinical History: GRACY JIMENEZ is a 55 year old Undifferentiated AMS patient undergoing EEG to screen for non-convulsive status epilepticus.
Diagnostic Recording Time: 01:28:47 (89 minutes)
Recording 1: [email or web address]
Start Time: Sep 13, 2025 15:33 PM End Time: Sep 13, 2025 17:01 PM
Recording Technique: This EEG was obtained using a 10 lead, 8 channel system positioned circumferentially without any parasagittal coverage (rapid EEG). Computer selected EEG is reviewed as well as background features and all clinically significant
events. Clarity algorithm utilized and implemented to provide analysis of underlying activity and seizure detection used to facilitate reading. ICD-10 Code OS39Z94
Clinical History: GRACY JIMENEZ is a 55 year old Prior Seizure patient undergoing EEG to screen for non-convulsive status epilepticus.
[2025-09-14] MEDS: KEPPRA 1000 MG IV ×2 (07:50→20:06)
[2025-09-14] MEDS: LOW STRENGTH ASPIRIN 81 MG TUBE (07:50)
[2025-09-14] MEDS: MIRALAX 17 GRAMS TUBE (07:50)
--- NOTE | 2025-09-14 08:00 | PTCARENOTE ---
Assumed care of patient. Pt rec'd intubated and sedated on ceribell. Non purposeful movments noted. Bilateral wrist restraints on. Pupils 3/sluggish. S1 S2 reg w/ NSR on monitor. +PP. No edema. #7 ETT 23cm @ left side of mouth. Current vent
settings: 14/400/+5/30%...sats 100%. Pt to be placed on CPAP/PSV wean shortly per . OG @ 68cm -> LIWS. Hypo BS noted. Temp sensing marshall draining yellow urine. Skin WNL. Left SQ port accessed w/ gtts infusing. LFA 20P noted. NSS
infusing...insulin per glycemic protocol....fentanyl gtt turned off for SBT....diprivan gtt cut in half (15) for SBT...see interventions. VS documented. Safe environment confirmed.
[2025-09-14 08:13] LABS: Glucose - Point of Care 80 mg/dl (70-99)
--- NOTE | 2025-09-14 08:30 | PTCARENOTE ---
Pt's at bedside. Weaning process explained. All questions answered. Neuro at bedside...lenoibell removed around 0745. For tentative MRI later today.
[2025-09-14 09:14] LABS: Glucose - Point of Care 112 mg/dl (70-99)
[2025-09-14 09:18] LABS: Glycohemoglobin (HgbA1c) 6.7 % (4.0-5.9)
[2025-09-14 09:20] LABS: B.E. 0.1 mmol/L; HCO3 24.7 mmol/L (21-28); O2 Saturation % 98.9 % (94-98); PCO2 39 mmHg (32-35); PO2 151 mmHg (83-108)
--- NOTE | 2025-09-14 09:29 | W.PN.NEURO.1 ---
Today's Communication / Plan
-
Agree with discontinuance of intubation
Patient loaded with levetiracetam, continue at 1000 mg twice a day
Will follow MRI of brain with and without contrast
Neuro Assessment/Plan
Assessment
Acute onset change mental status with generalized tonic-clonic movements in a patient with previously diagnosed metastatic breast cancer, gamma knife procedures and recent right temporal craniotomy.
As the patient's initial event was longer than 10 minutes, most likely consistent with status epilepticus, not evident by use of the Ceribell device
Plan
Agree with discontinuance of intubation
Patient loaded with levetiracetam, continue at 1000 mg twice a day
Will follow MRI of brain with and without contrast
We will follow peripherally
Subjective/Objective
Subjective Data
Date of Service: September 14, 2025
Patient unable to provide her own medical history
Objective Data
Vital Signs
Temp Pulse Resp BP Pulse Ox
36.7 C 110 22 115/69 100
09/14/25 08:00 09/14/25 08:47 09/14/25 08:47 09/14/25 07:00 09/14/25 08:47
Lab Results
09/14/25 03:08
PT 12.8 Sec (11.4-14.6) 09/13/25 14:21
INR 0.98 09/13/25 14:21
APTT 21.7 Sec (23.4-35.0) L 09/13/25 14:21
Sodium 135 mmol/L (135-145) 09/14/25 03:08
Potassium 3.4 mmol/L (3.5-5.1) L 09/14/25 03:08
BUN 5 mg/dl (7-17) L 09/14/25 03:08
Glucose 180 mg/dl (70-99) H 09/14/25 03:08
Calcium 7.7 mg/dl (8.4-10.2) L 09/14/25 03:08
LDL Cholesterol, Calc 69 mg/dl 09/14/25 03:08
Patient Allergies
No Known Allergies Allergy (Verified 06/25/24 17:49)
Review of Systems
-
Unable to obtain full review of systems at this time due to: Patient Intubation and Lethargy
History Source: Patient
All other systems: Reviewed and negative
Physical Exam
-
General: No Apparent Distress, Intubated and Appears Stated Age
Eyes: Able to visualize OU, Round OU and [place] Conjunctivae
HEENT: Anicteric and Moist Mucous Membranes
Neck: Full Range of Motion
Respiratory: No Dyspnea
Cardiac: No JVD
GI: Non-distended
Skin: Unremarkable
Extremities: No Clubbing, No Cyanosis and No Edema
Psych: Unable to Assess
Extended Neurological Exam
Mood & Affect: Unable to Assess
Attention Span & Concentration: Awake, Interactive and Other (Able to perform single step request); Negative Alert
Memory: Unable to Assess
Tremor: Hand Tremor Absent and Head Tremor Absent
Involuntary Movement: None
Speech: Unable to Assess
Cranial Nerve II: Left Eye: Pupillary Reactivity Unremarkable, Pupillary Size Unremarkable and Unable to Assess Visual Delvalle
Cranial Nerve II: Right Eye: Pupillary Reactivity Unremarkable, Pupillary Size Unremarkable and Unable to Assess Visual Delvalle
Cranial Nerves III, IV, : Extraocular Movement: Absent Doll's Eyes and Unable to Assess (Ptosis)
Cranial Nerve V: Facial Sensation: Unable to Assess
Cranial Nerve VII: Facial Symmetry: Normal Facial Symmetry
Cranial Nerves IX, X: Palate Movement: Unable to Assess
Cranial Nerve XI: Shoulder Shrug: Unable to Assess
Cranial Nerve XII: Tongue Protusion: Unable to Assess
Muscle Strength, Overall: Spontaneously Moves
Muscle Bulk & Tone: Bulk Unremarkable and Tone Unremarkable
Pronator Drift: Unable to Assess
Cold Sensation: Unable to Assess
Vibration Sensation: Unable to Assess
Coordination: Unable to Assess
Gait & Station: Unable to Assess
Data Reviewed
-
EEG: Report Reviewed
Labs: Report Reviewed
Reviewed with: Physician, Nurse and Family
Old Records: Summarized
Past History
Past History
ED Past Medical History: Cancer (Breast), IDDM and Other (Status epilepticus August 2025); Negative HTN or Hypercholesterolemia
ED Past Surgical History: Brain (Left cerebellar resection, right temporal lobe resection, Gamma knife therapy to multiple lesions in brain); Negative Cardiac
Social History
Tobacco: Non-smoker
Alcohol: None
Drug: None
Personal:
Living: with family
Employment: Employed
Family History
Family History: Hypertension
Medications
-
Medications:
Generic Name Dose Route Start Last Admin
Trade Name Freq PRN Reason Stop Dose Admin
Acetaminophen 650 mg 09/13/25 19:59 09/14/25 00:21
Acetaminophen (Oral Solution) 650 Mg/20.3 Ml Cup TUBE 10/11/25 19:58 650 mg
Q4HPRN PRN Administration
fever>100.3/mild pain
Aspirin 81 mg 09/14/25 08:00 09/14/25 07:50
Aspirin 81 Mg Chewable Tablet TUBE 10/12/25 07:59 81 mg
DAILY KENNY Administration
Dextrose 12.5 grams 09/13/25 17:41
Dextrose 50% (0.5 Grams/Ml) 50 Ml Syringe IV 10/11/25 17:40
[id number] PRN
Blood Glucose < 70
Enoxaparin Sodium 40 mg 09/13/25 18:00 09/13/25 18:14
Enoxaparin Sodium 40 Mg/0.4 Ml Syringe SC 10/11/25 17:59 40 mg
QPM KENNY Administration
Fentanyl Citrate 50 mcg 09/13/25 17:09 09/13/25 21:45
Fentanyl (50 Mcg/Ml) 100 Mcg/2 Ml Ampul IV 09/27/25 17:08 50 mcg
[id number] PRN Administration
see protocol
Protocol
Heparin Sodium (Porcine) 500 unit 09/13/25 19:30
Heparin Flush Pf (100 Unit/Ml) 5 Ml Syringe IV 10/11/25 19:29
PER PROTOCOL KENNY
Sodium Chloride 1,000 mls @ 60 mls/hr 09/13/25 17:02 09/13/25 19:26
Nss IV 1,000 mls
.[id number] KENNY Administration
Propofol 1,000,000 mcg in 100 mls @ 0 mls/hr 09/13/25 17:02 09/14/25 05:47
Diprivan IV 100 mls
PER PROTOCOL KENNY Administration
Protocol
Per Protocol
Fentanyl Citrate 1,000 mcg in 100 mls @ 0 mls/hr 09/13/25 17:15 09/13/25 19:27
Sublimaze IV 100 mls
PER PROTOCOL KENNY Administration
Protocol
Per Protocol
Insulin Human Regular 100 units in 100 mls @ 0 mls/hr 09/13/25 17:45 09/13/25 18:12
Novolin R Insulin Infusion IV 100 mls
PER PROTOCOL KENNY Administration
Protocol
Per Protocol
Insulin Aspart 0 units 09/14/25 07:30 09/14/25 07:48
Insulin Aspart (Novolog) 100 Units/Ml 3 Ml Flexpen SC 10/12/25 07:29 Not Given
AC KENNY
Protocol
Levetiracetam 1,000 mg 09/13/25 23:00 09/14/25 07:50
Levetiracetam (100 Mg/Ml) 500 Mg/5 Ml Vial IV 10/11/25 22:59 1,000 mg
Q12 KENNY Administration
Polyethylene Glycol 17 grams 09/14/25 08:00 09/14/25 07:50
Polyethylene Glycol Powder 17 Grams Packet TUBE 10/12/25 07:59 17 grams
DAILY KENNY Administration
Sodium Chloride 0 flush 09/13/25 18:00
Sodium Chloride 0.9% (Flush) Syringe IV 10/11/25 17:59
PER PROTOCOL KENNY
[2025-09-14 10:01] LABS: Glucose - Point of Care 154 mg/dl (70-99)
[2025-09-14 10:59] LABS: Glucose - Point of Care 151 mg/dl (70-99)
--- NOTE | 2025-09-14 11:00 | PTCARENOTE ---
Pt extubated to 2L N/C...sats 98%. Pt mildly tearful but able to nod head and follow simple commands. Safe environment confirmed.
--- NOTE | 2025-09-14 11:06 | W.PN.INTV ---
Addendum entered and electronically signed by Suzanne Key MD 09/14/25 16:26:
- Patient tolerated SAT/SBT well, successfully extubated
- Stable for transfer out of ICU
- Health Coach service will sign off, please call as needed
Original Note:
Today's Communication / Plan
Recommendations
- Initiate SAT/SBT
- Wean off propofol
- Anticipate extubation later today
Assessment
-
Patient is a 55-year-old female currently intubated, mechanically ventilated and sedated. History was obtained from review of records and discussion with other healthcare providers. Reportedly patient has history of metastatic breast cancer
including brain mets s/p craniotomy, tumor removal as well as radiation therapy with biopsy suggestive of radiation necrosis in 2022. Patient was at physical therapy office where she became aphasic followed by a fall which eventually progressed to
a tonic-clonic seizures. In the emergency room patient was noted to be in status epilepticus and required intubation. She was started on propofol along with IV Keppra and neurology service was consulted. Decision was made to admit her to ICU and
anvilsmith consultation was requested for further input.
#1. Acute respiratory failure in the setting of Status epilepticus
- Inability to protect airway leading to intubation (09/13)_
- Has been tolerating volume assist-control well, switch to pressure support along with weaning of sedation.
- CXR without acute pulmonary process
- Known h/o metastatic breast cancer with brain mets
- Neurology service on case
- Initiated on Keppra IV, PRN Ativan
- EEG on 09/14, without ongoing seizure.
- Initiate SAT/SBT, anticipate extubation later today.
#2. H/o metastatic breast cancer, original diagnosis in 2019 (Liver, spinal and brain mets)
- Prior history of brain metastasis s/p gamma knife treatment in 2022
- Recent resection of brain lesions, 06/2025, reportedly radiation necrosis
- Hold off steroids for now.
Other medical diagnoses:
- IDDM. insulin infusion
- Thoracic/Lumbar/Sacral spine metastasis. PRN Fentanyl for pain
DVT prophylaxis. Lovenox 40 s.c.
Critical Care time 46 mins -- The patient is admitted for acute critical illness for the treatment of vital organ failure and/or prevention of further life-threatening conditions. Total care includes time spent in review of history, physical exam,
medications, hemodynamic/ventilator parameters, laboratory data, imaging and discussion with house staff, pharmacy, respiratory therapy, alteration inspector, and nursing.
Data:
CT Head 08/2025: Treated intracranial metastatic disease with scattered intraparenchymal calcifications, greatest in the anterior left frontal lobe. Encephalomalacia in the right temporal lobe and in the left cerebellum with overlying craniotomy
defects from previously resected disease.
CXR 08/2025: No acute pulmonary process identified.
ECHO 12/2019: Normal left ventricular chamber size. Normal left ventricular wall thickness.
Normal left ventricular systolic function. Left ventricular ejection fraction
is 55-60%. Normal diastolic function. GLS -19.4%.
Normal right ventricular size and function.
No significant valvular disease.
Compared to the previous echo 12/16/2019 there is no significant change.
Subjective Dataa
Subjective Data
Date of Service:
Date of Service: September 14, 2025
Subjective:
Currently intubated, mechanically ventilated and sedated.
Review of Systems
General: Unobtainable - Sedation
Objective Data
Data Reviewed
Vital Signs / I&O / Oxygen:
Vital Signs
Temp Pulse Resp BP Pulse Ox
98.1 F 110 22 115/69 97
09/14/25 08:00 09/14/25 08:47 09/14/25 08:47 09/14/25 07:00 09/14/25 11:00
Intake and Output
09/13/25 09/14/25 09/15/25
06:59 06:59 06:59
Intake Total 1052.9 / 1128.0 430.1 / 430.1
Output Total 1150 / 1170 250 / 250
Balance -97.1 / -42.0 180.1 / 180.1
SaO2 [A/C] 100
SaO2 97
Nasal Cannula flow liters per 2
minute
Physical Exam
General: Comfortable
HEENT: Normocephalic
Cardiovascular: S1-S2
Respiratory: Clear
GI: Soft and Non Distended
Neurology: Other (Sedated)
Skin: Warm
Labs/Micro/Reports
Lab Data
09/14/25 03:08
Laboratory Results
09/13/25 09/13/25 09/14/25
14:21 15:14 04:36
PT 12.8
INR 0.98
APTT 21.7 L
pH 7.43 7.53 H
pCO2 29 L 24 L
pO2 193 H 174 H
HCO3 19.2 L 20.1 L
O2 Delivery Level
09/14/25
09:08
PT
INR
APTT
pH 7.41
pCO2 39 H
pO2 151 H
HCO3 24.7
O2 Delivery Level
[2025-09-14] MEDS: NSS 1000 IV (11:42)
--- NOTE | 2025-09-14 11:49 | PN.DE.MGMTRT ---
Insulin Management
- -
09/14/2025 Diabetes Management Consult
55 year old patient admitted 09/13 s/p witnessed seizure. PMH Type 1 diabetes for ~ 15 years, stage IV metastatic breast CA with mets to brain, lumbar sacral thoracic spine. In 2022 had craniotomy for removal of tumor in brain. Due to seizure
activity patient was intubated and mechanically ventilated in ED.
Glucose at time of seizure 172. Prior to admission was using the Medtronic pump with Guardian sensor, novolog insulin and Quick set. A1C 6.7%
Patient remains intubated and on vent. at bedside and very supportive. All information from or chart. states patient is followed by Dr. Rosales, endocrine, at [facility].
Patient was started on critical care glycemic protocol but has not required insulin for the past 3 hours due to glucose < 100. Insulin pump OFF at bedside, settings as follows:
Basal Carb Ratio Sensitivity Target
12am .4 10 40 100 - 140
4pm .4 12 40 100 - 140
24 hour basal total 9.6 units.
Active insulin 2 hours
Patient requires very low dose of basal insulin. Patient for possible extubation later today. Discussed with need for pump supplies and new sensor. He will bring them in this AM or early afternoon.
Discussed with nurse.
Will follow.
Diabetes History
- -
Type of Diabetes: 1
Pre-Admission Diabetes Regimen
09/13/25 09/14/25
14:07 03:08
Creatinine 0.5 L 0.4 L
Lab Results
Hemoglobin A1c Cancelled 09/13/25 17:41
Insulin Pump Settings
IP Diabetes Regimen
09/13/25 09/13/25 09/13/25
14:07 17:55 19:33
Glucose 172 H
POC Glucose 162 H 92
09/13/25 09/13/25 09/13/25
20:38 21:31 22:06
Glucose
POC Glucose 85 122 H 122 H
09/13/25 09/14/25 09/14/25
23:00 00:00 01:52
Glucose
POC Glucose 134 H 136 H 164 H
09/14/25 09/14/25 09/14/25
03:08 03:55 05:00
Glucose 180 H
POC Glucose 194 H 154 H
09/14/25 09/14/25 09/14/25
06:01 06:59 08:01
Glucose
POC Glucose 109 H 77 80
09/14/25 09/14/25 09/14/25
09:02 09:59 10:57
Glucose
POC Glucose 112 H 154 H 151 H
Patient Education
--- NOTE | 2025-09-14 12:00 | PTCARENOTE ---
Pt currently on 2L N/C...sats 100%. No major changes in physical assessment except pt is drowsy but easily arousable. Able to let needs known. Safe environment confirmed. Family at bedside.
[2025-09-14 12:17] LABS: Blood Urea Nitrogen 5 mg/dl (7-17); Calcium 7.2 mg/dl (8.4-10.2); Carbon Dioxide 23 mmol/L (22-30); Chloride 111 mmol/L (98-107); Estimated Creatinine Clearance 94 ml/min; Glucose 173 mg/dl (70-99); Magnesium 1.8 mg/dl (1.6-2.3); Potassium 3.9 mmol/L (3.5-5.1); Sodium 136 mmol/L (135-145); eGFR > 60.00
[2025-09-14 12:51] LABS: Ferritin 134.0 ng/ml (11.1-264.0)
[2025-09-14 13:17] LABS: Glucose - Point of Care 164 mg/dl (70-99)
[2025-09-14 13:22] LABS: Folate 9.8 ng/ml (2.76-20); Vitamin B12 506 pg/ml (239-931)
[2025-09-14] MEDS: ATIVAN 0.5 MG IV (13:23)
[2025-09-14] MEDS: NSS (PRESERVATIVE FREE) 0.25 ML IV (13:30)
--- NOTE | 2025-09-14 14:30 | PTCARENOTE ---
Pt's marshall and left arm sensor removed @ 1330 prior to MRI. 0.5mg IV ativan given prior to MRI.
--- NOTE | 2025-09-14 14:56 | W.PN.HOSP.TC ---
Today's Communication/Plan
-
Assessment / Plan
Assessment / Plan
General: Intubated and sedated
HEENT: Status post craniotomy, ETT in place
Respiratory: Clear breath sounds, spontaneously breathing on ventilator weaning trial
Cardiac: S1/S2 and Regular Rhythm; No Rub or Gallop
GI: Soft, Non Tender, Non Distended and Normal Bowel Sounds
Musculoskeletal: No Edema, no deformity
Skin: Warm and dry
: Cervantes in place draining clear yellow urine
Neuro: Sedated with RASS -1, responsive to voice, follows commands
Psych: Unable to assess
Ms. Al is a 55-year-old female with a medical history of stage IV breast cancer with mets to brain liver and bone (status post craniotomy with tumor removal, radiation, biopsy suggestive of radiation necrosis) and IDDM with insulin pump.
Patient was at physical therapy when she suddenly became aphasic and fell to the ground, after which she developed tonic-clonic seizures. In the emergency room she was found to be in status epilepticus and intubated for airway protection. She was
started on propofol and loaded right IV Keppra and admitted to the ICU.
Status epilepticus:
- Seizures have aborted
- Continuing IV Keppra 1 g twice daily as needed Ativan
- Currently tolerating ventilator weaning trial, anticipate extubation later today
- Appreciate neurology guidance
- MRI brain with and without contrast pending
IDDM:
- Patient has insulin pump which is currently off
- Diabetes management nurse practitioner following
- Additional sliding scale insulin as needed
DVT prophylaxis: Lovenox
CODE STATUS: Full code
Anticipated Discharge: > 48 hours
Subjective/Interval History
-
Date of Service: September 14, 2025
Patient was seen and examined at bedside this morning. Her seizures have aborted. She remains intubated for airway protection however is currently tolerating weaning trial.
Objective Data
-
Labs:
Laboratory Results
09/13/25 09/14/25 09/14/25
14:07 03:08 04:36
WBC 12.2 H 10.4
Hgb 10.9 L 10.0 L
Hct 33.4 L 30.6 L
Plt Count 228 184
HCO3 20.1 L
Sodium 135
Potassium 3.4 L
Chloride 111 H
Carbon Dioxide 21 L
BUN 5 L
Creatinine 0.4 L
Glucose 180 H
Calcium 7.7 L
Total Bilirubin 0.6
AST 57 H
ALT 38 H
Alkaline Phosphatase 75
09/14/25 09/14/25
09:08 11:48
WBC
Hgb
Hct
Plt Count
HCO3 24.7
Sodium 136
Potassium 3.9
Chloride 111 H
Carbon Dioxide 23
BUN 5 L
Creatinine 0.4 L
Glucose 173 H
Calcium 7.2 L
Total Bilirubin
AST
ALT
Alkaline Phosphatase
Vital Signs:
Vital Signs
Temp Pulse Resp BP Pulse Ox
98.8 F 115 18 117/75 98
09/14/25 12:46 09/14/25 11:00 09/14/25 11:00 09/14/25 11:00 09/14/25 11:00
I&O
09/13/25 09/14/25 09/15/25
06:59 06:59 06:59
Intake Total 1052.9 / 1128.0 610.1 / 610.1
Output Total 1150 / 1170 375 / 375
Balance -97.1 / -42.0 235.1 / 235.1
Review of Systems
-
Unable to obtain full review of systems at this time due to: Acuity and Patient Intubation
Physical Exam
-
General: Intubated
[2025-09-14 15:14] LABS: Glucose - Point of Care 165 mg/dl (70-99)
--- NOTE | 2025-09-14 15:41 | CM ---
Initial assessment completed. Patient is a 55-year-old female from physical therapy office at 1300 became aphasic, stood and fell at 1315.
Patient resides w/ spouse and their son and college aged daughter. 2STH plus basement, 2 steps to enter. Patient is independent w/ cane, has a foot brace. No SNF hx. Home PT hx. Current w/ OP PT at [facility].
Address, point of contact and insurance verified
PCP: Per spouse, patient's previous PCP moved so she does not have one at this time. Patient's oncologist is Sharonda Bazan
Pharmacy: [facility]
Plan: CM will cont to follow for d/c needs
--- NOTE | 2025-09-14 16:00 | PTCARENOTE ---
Pt currently on R/A...100%. Moist NPC noted. Incontinent of yellow urine. Drowsy but easily arousable. Denies pain at present. VS documented. Safe environment confirmed.
[2025-09-14] MEDS: LANTUS 0.1 UNITS SC (16:09)
[2025-09-14] MEDS: LOVENOX 40 MG SC (17:17)
[2025-09-14 17:32] LABS: Glucose - Point of Care 139 mg/dl (70-99)
[2025-09-15] VITALS: BP 101/64
--- NOTE | 2025-09-15 00:18 | PTCARENOTE ---
Patient's fingerstick BG 58. drowsy at baseline and responsive. Asking for assistance with voiding. Hypoglycemic protocol followed- see nov. Recheck BG for 147. Patient placed on the bedpan- voided ravinder urine. sinus tachy with activity then
reverts to nsr on the monitor. Safety measures in use for seizure precaution. Bed alarm in use. Call chao is within reach.
[2025-09-15 00:27] LABS: Glucose - Point of Care 147 mg/dl (70-99)
[2025-09-15 02:16] LABS: Glucose - Point of Care 92 mg/dl (70-99)
[2025-09-15 04:08] VITALS: BP 104/65
[2025-09-15 04:15] LABS: Glucose - Point of Care 77 mg/dl (70-99)
[2025-09-15 04:28] LABS: Hematocrit 29.4 % (37.0-47.0); Hemoglobin 9.9 g/dL (12.0-16.0); Mean Corp Hgb Conc. 33.7 g/dL (33.0-37.0); Mean Corpuscular Volume 103.5 fL (81.0-99.0); Nucleated Red Blood Cells % 0 %; Platelet Count 182 10^3/uL (130-400); Red Cell Dist. Width 14.3 % (11.5-14.5)
--- NOTE | 2025-09-15 04:38 | PTCARENOTE ---
Patient's BG noted to be trending down s/p hypoglycemic event at 00:00. BG 92 at 02.05. STATUE MAKER made aware since the patient's npo and on normal saline due to concern for continued downward trend. However, previous result for BG 58 did not cross over to
the MAR. Tonia Washburn CRNP at the bedside as she is not able to see hypoglycemic result. Plan to continue with prn treatment if the patient's hypoglycemic again.
04:03- the patient's BG is 77. Patient remains drowsy but able to make her needs known. Swallow screening complete. Pt's alert and following commands- tongue midline and able to move side to side. [place] juice 4 oz utilized for swallow screening.
The patient tolerated well without difficulty. Patient is asking if she is able to have breakfast in the morning. TANIYA Washburn, updated.
[2025-09-15 04:48] LABS: ALT (SGPT) 33 U/L (0-35); AST (SGOT) 47 U/L (14-36); Albumin 2.4 g/dl (3.5-5.0); Alkaline Phosphatase 67 U/L (38-126); Blood Urea Nitrogen 3 mg/dl (7-17); Calcium 7.3 mg/dl (8.4-10.2); Carbon Dioxide 23 mmol/L (22-30); Chloride 113 mmol/L (98-107); Estimated Creatinine Clearance 94 ml/min; Glucose 83 mg/dl (70-99); Potassium 3.5 mmol/L (3.5-5.1); Sodium 138 mmol/L (135-145); Total Protein 4.6 g/dl (6.3-8.2); eGFR > 60.00
[2025-09-15 06:00] VITALS: BMI 19.8
[2025-09-15 06:27] LABS: Glucose - Point of Care 117 mg/dl (70-99)
--- NOTE | 2025-09-15 07:42 | PN.DE.MGMTRT ---
Insulin Management
- -
09/15/2025: Diabetes Management Follow up
55 year old patient admitted 09/13 s/p witnessed seizure. PMH Type 1 diabetes for ~ 15 years, stage IV metastatic breast CA with mets to brain, lumbar sacral thoracic spine. In 2022 had craniotomy for removal of tumor in brain. Due to seizure
activity patient was intubated and mechanically ventilated in ED.
Glucose at time of seizure 172. Prior to admission was using the Medtronic pump with Guardian sensor, NovoLog insulin and Quick set. A1C 6.7%
Patient extubated yesterday, remained lethargic and slow to respond. Insulin pump remained OFF yesterday due to poor mental status with plans to resume pump today if mental status is at baseline.
Today pt awake, alert, oriented, sitting up in bed, and parents at bedside and very supportive, states patient is followed by Dr. Rosales, endocrine, at [facility].
Patient transitioned off critical care glycemic protocol yesterday, received Lantus 10 units @ 3pm. Noted for an episode of hypoglycemia to 51, treated-->147.
Patient's has been assisted with process of getting insulin pump up and running. New Guardian censor was applied to Left upper arm and insulin pump inserted to LLQ. Sensor has 2 hrs of warmup time.
Pump settings as follows:
Basal Carb Ratio Sensitivity Target
12am .4 10 40 100 - 140
4pm .4 12 40 100 - 140
24 hour basal total 9.6 units.
Active insulin 2 hours
Patient requires very low dose of basal insulin, will make no changes to her pump settings.
Discussed with nurse, instructed to have insulin pump worksheet at bedside. Pt will be able to adm bolus at meal times.
Cont Accuchek AC/HS. Will cont to follow
Diabetes History
- -
Type of Diabetes: 1
Pre-Admission Diabetes Regimen
09/14/25 09/15/25
11:48 04:13
Creatinine 0.4 L 0.4 L
Lab Results
Hemoglobin A1c Cancelled 09/13/25 17:41
Insulin Pump Settings
IP Diabetes Regimen
09/14/25 09/14/25 09/14/25
08:01 09:02 09:59
Glucose
POC Glucose 80 112 H 154 H
09/14/25 09/14/25 09/14/25
10:57 11:48 13:05
Glucose 173 H
POC Glucose 151 H 164 H
09/14/25 09/14/25 09/15/25
15:03 17:21 00:15
Glucose
POC Glucose 165 H 139 H 147 H
09/15/25 09/15/25 09/15/25
02:05 04:03 04:13
Glucose 83
POC Glucose 92 77
09/15/25
06:16
Glucose
POC Glucose 117 H
Meal type: Dinner
Patient Education
[2025-09-15 07:54] LABS: Glucose - Point of Care 51 mg/dl (70-99)
[2025-09-15 08:00] VITALS: BP 103/60
[2025-09-15] MEDS: KEPPRA 1000 MG IV ×2 (08:02→20:06)
[2025-09-15] MEDS: LOW STRENGTH ASPIRIN 81 MG TUBE (08:03)
[2025-09-15] MEDS: MIRALAX 17 GRAMS TUBE (08:03)
--- NOTE | 2025-09-15 08:31 | W.PN.NEURO.1 ---
Addendum entered and electronically signed by Everardo Lujan MD 09/15/25 09:17:
Studies reviewed.
I have personally examined the patient. I reviewed and agree with the ASTHMA EDUCATOR's Note.
My addenda:
Awake, interactive. Maintains eyes closed typically. No acute distress.
Speech reduced output.
Follows 1-step requests w/ difficulty. No tremor.
Extra-ocular movements grossly intact.
Facial movements full and symmetric. Hearing intact to normal conversational volume.
Normal UE movements bilaterally.
Neck: full ROM.
Chest: no dyspnea
Heart: no JVD
Ext: (-) Clubbing, (-) Cyanosis, (-) Edema
IMPRESSIONS/RECOMMENDATIONS:
Abrupt onset of change in mental status. Most likely due to generalized tonic-clonic seizures (status epilepticus)
recheck EEG due to lethargy
consider decreasing Levetiracetam dosing
D/W patient
All questions answered.
Will continue to follow peripeherally.
Original Note:
Today's Communication / Plan
-
PT/OT/ST evaluations
Patient loaded with levetiracetam, continue at 1000 mg twice a day
Patient continues to be lethargic, will obtain another EEG to ensure absence of seizures, if negative may consider reducing levetiracetam to help with lethargy
Seizure precautions
Neuro Assessment/Plan
Assessment
Acute onset change mental status with generalized tonic-clonic movements in a patient with previously diagnosed metastatic breast cancer, gamma knife procedures and recent right temporal craniotomy.
As the patient's initial event was longer than 10 minutes, most likely consistent with status epilepticus, not evident by use of the Ceribell device
EEG 09/14/25: Absence of status epilepticus
Brain MRI 09/14/25: Complex appearance of the brain secondary to the intracranial metastatic disease and posttreatment changes. The largest metastases are located in the superior left frontal lobe and anterior right basal ganglia. Right temporal
lobe resection cavity with nodular postcontrast enhancement about the resection margins concerning for recurrent disease. 1.2 cm region of signal alteration in the posterior right insula suspicious for subacute blood products. Other areas of signal
alteration at the anterior aspects of the right temporal and left cerebellar resection cavities may be secondary to a nonacute blood products versus ischemic changes at the resection margins.
Plan
PT/OT/ST evaluations
Patient loaded with levetiracetam, continue at 1000 mg twice a day
Patient continues to be lethargic, will obtain another EEG to ensure absence of seizures, if negative may consider reducing levetiracetam to help with lethargy
Seizure precautions
All questions encouraged and answered, plan of care discussed with Dr. Lujan, patient and nurse
Subjective/Objective
Subjective Data
Date of Service: September 15, 2025
No acute overnight events. Patient awake, oriented and following commands. She states she does not remember what happened but that she is tired. States that she is always tired and this is her baseline.
Objective Data
Vital Signs
Temp Pulse Resp BP Pulse Ox
98.3 F 102 13 103/60 97
09/15/25 08:00 09/15/25 08:15 09/15/25 08:15 09/15/25 08:00 09/15/25 08:15
Lab Results
09/15/25 04:13
09/15/25 04:13
PT 12.8 Sec (11.4-14.6) 09/13/25 14:21
INR 0.98 09/13/25 14:21
APTT 21.7 Sec (23.4-35.0) L 09/13/25 14:21
Sodium 138 mmol/L (135-145) 09/15/25 04:13
Potassium 3.5 mmol/L (3.5-5.1) 09/15/25 04:13
BUN 3 mg/dl (7-17) L 09/15/25 04:13
Glucose 83 mg/dl (70-99) 09/15/25 04:13
Calcium 7.3 mg/dl (8.4-10.2) L 09/15/25 04:13
Phosphorus 2.4 mg/dl (2.5-4.5) L 09/14/25 11:48
LDL Cholesterol, Calc 69 mg/dl 09/14/25 03:08
Vitamin B12 506 pg/ml (239-931) 09/14/25 11:48
Patient Allergies
No Known Allergies Allergy (Verified 06/25/24 17:49)
Physical Exam
-
General: No Apparent Distress and Comfortable
HEENT: Normocephalic and Atraumatic
Neck: Full Range of Motion
Respiratory: No Dyspnea
Cardiac: No JVD
GI: Non-distended
Skin: Unremarkable
Extremities: No Clubbing, No Cyanosis and No Edema
Psych: Negative Intact Judgement/Insight
Extended Neurological Exam
Attention Span & Concentration: Awake, Interactive and Lethargic
Memory: Unable to Recall
Speech: Quality Unremarkable, Quantity Unremarkable and Rate of Production Unremarkable
Cranial Nerve VII: Facial Symmetry: Normal Facial Symmetry
Cranial Nerve VIII: Hearing: Unremarkable Hearing to Normal Conversational Volume
Pronator Drift: No Drift in Upper Extremities and No Drift in Lower Extremities
Coordination: [id number] Testing Unremarkable
Data Reviewed
-
CT Head: Report Reviewed and Image Reviewed
MRI Head: Report Reviewed and Image Reviewed
EEG: Report Reviewed
Medical Test Reports: Report Reviewed
Labs: Report Reviewed
Reviewed with: Physician and Patient
Old Records: Summarized
--- NOTE | 2025-09-15 10:06 | PTOTSP ---
Speech Therapy Evaluation:
Pt with acute on chronic risk factors of dysphagia. Chronic risk factors include stage IV metastatic breast CA with mets to spine, liver, and brain s/p craniotomy and tumor removal (06/2025) followed by radiation/radiation necrosis and chemo. Acute
risk factors include status epilepticus and brief intubation (09/13-09/14). At bedside, vocal quality weak and mildly hoarse, which pt reported was baseline. She denied any dysphagia hx. She tolerated PO trials without any difficulty. Passed 3oz
swallow screen x2, WBC WNL, CXR without PNA concerns, and pt on room air.
Recommend:
1. Initiate IDDSI Level 7 (regular solids) and thin liquids
2. Medications as tolerated
3. Strict aspiration precautions
4. EPIC TRAINER to follow to monitor tolerance of diet and determine if pt would benefit from an instrumental assessment, however does not appear indicated at this time
[2025-09-15 10:52] LABS: Glucose - Point of Care 101 mg/dl (70-99)
[2025-09-15 12:00] VITALS: BP 91/55
--- NOTE | 2025-09-15 12:29 | PTCARENOTE ---
EEG in progress.
[2025-09-15 14:11] LABS: Glucose - Point of Care 122 mg/dl (70-99)
[2025-09-15 16:00] VITALS: BP 100/56
--- NOTE | 2025-09-15 16:37 | W.PN.HOSP.TC ---
Today's Communication/Plan
-
Assessment / Plan
Assessment / Plan
General: Intubated and sedated
HEENT: Status post craniotomy, extubated
Respiratory: Clear breath sounds, equal chest rise
Cardiac: Regular rhythm, heart rate around 100
GI: Soft, Non Tender, Non Distended and Normal Bowel Sounds
Musculoskeletal: No Edema, no deformity
Skin: Warm and dry
: Cervantes in place draining clear yellow urine
Neuro: No tremor, no focal deficits
Psych: Calm, cooperative
Ms. Al is a 55-year-old female with a medical history of stage IV breast cancer with mets to brain liver and bone (status post craniotomy with tumor removal, radiation, biopsy suggestive of radiation necrosis) and IDDM with insulin pump.
Patient was at physical therapy when she suddenly became aphasic and fell to the ground, after which she developed tonic-clonic seizures. In the emergency room she was found to be in status epilepticus and intubated for airway protection. She was
started on propofol and loaded right IV Keppra and admitted to the ICU.
Status epilepticus:
- Seizures have aborted
- Continuing IV Keppra 1 g twice daily as needed Ativan
- Neurology considering decreasing Keppra dose to avoid sedation
- MRI brain with and without contrast shows multiple abnormalities none of which appear acute
IDDM:
- Patient has insulin pump
- Diabetes management nurse practitioner following
- Additional sliding scale insulin as needed
DVT prophylaxis: Lovenox
CODE STATUS: Full code
Anticipated Discharge: > 48 hours
Subjective/Interval History
-
Date of Service: September 15, 2025
Patient was seen and examined at bedside this morning. No acute distress. Extubated.
Objective Data
-
Labs:
Laboratory Results
09/15/25
04:13
Sodium 138
Potassium 3.5
Chloride 113 H
Carbon Dioxide 23
BUN 3 L
Creatinine 0.4 L
Glucose 83
Calcium 7.3 L
Total Bilirubin 0.5
AST 47 H
ALT 33
Alkaline Phosphatase 67
Vital Signs:
Vital Signs
Temp Pulse Resp BP Pulse Ox
98.5 F 105 15 100/56 97
09/15/25 15:25 09/15/25 16:00 09/15/25 16:00 09/15/25 16:00 09/15/25 16:00
I&O
09/14/25 09/15/25 09/16/25
06:59 06:59 06:59
Intake Total 1052.9 / 1128.0 1570.1 / 1570.1 0 / 0
Output Total 1150 / 1170 685 / 685
Balance -97.1 / -42.0 885.1 / 885.1 0 / 0
Review of Systems
-
History Source: Patient
All other systems: Reviewed and negative
Physical Exam
-
General: No Apparent Distress and Appears Chronically Ill
--- NOTE | 2025-09-15 17:13 | EEG.RPT ---
Electroencephalogram Report
Recording
Date of EE09/15/25
Type of EEG: Routine
Length of EEG recordin minutes
Done with Video Recording: Yes
Patient Status: Inpatient
Recording Conditions: Awake, Drowsy and Asleep
Hyperventilation Performed: No
Photic Stimulation Performed: Yes
Report
GREATER THAN 1 HOUR EEG INTERPRETATION:
Unremarkable EEG for age
CLINICAL CORRELATION:
A normal EEG does not rule out a diagnosis of epilepsy. If clinical suspicion for seizure persists, a prolonged recording may be warranted.
Clinical correlation is advised.
METHODS:
A 21 channel digitized electroencephalogram (EEG) was performed using the 10/20 international system of electrode placement and one-lead of ECG recorded. The myContactCard quantitative EEG system was utilized.
ELECTROENCEPHALOGRAPHER IMPRESSION(S):
Quality of study
Good
Background
There was an unremarkable anterior-posterior voltage gradient of alpha frequency.
With eye opening the background activity changed to a low voltage mixture of frequencies.
There were no significant asymmetries of background activity noted.
Sleep
Drowsiness present
Stage 1 present
Hyperventilation
No activation
Photic Stimulation
No activation
ECG
Normal sinus rhythm
[2025-09-15] MEDS: LOVENOX 40 MG SC (18:04)
[2025-09-15] MEDS: PT'S OWN INSULIN PUMP - NovoLOG 5.8 UNIT SC (18:04)
[2025-09-15 18:12] LABS: Glucose - Point of Care 140 mg/dl (70-99)
--- NOTE | 2025-09-15 18:22 | PTCARENOTE ---
Patient more alert towards the end of day, forgetful to situation but able to state place and month/year. Cleared by speech. Regular diet started as pt has fair appetite that is improving. Insulin pump placed to RLQ on the abd by (Josue) with
Diabetes PACKAGE WORKER supervising. No gi/gu complaints, voiding in bedpan. Able to reposition self in bed. NSR/ST on telemetry. Room air. Denies any pain. and children visited, supportive of patient. Left PIV saline locked, LCW port heparin flushed,
dressing intact. Bed alarm set for safety. No seizure activity noted. Call chao within reach.
[2025-09-15 20:00] VITALS: BP 104/58
[2025-09-15] MEDS: FLUSH (NSS) 1 FLUSH IV (20:16)
[2025-09-15] MEDS: PT'S OWN INSULIN PUMP - NovoLOG SC (22:09)
[2025-09-15 22:19] LABS: Glucose - Point of Care 173 mg/dl (70-99)
[2025-09-16] VITALS (10 sets, daily range): BP systolic 99–114; BP diastolic 62–75; PULSE 97
[2025-09-16 03:13] LABS: Glucose - Point of Care 150 mg/dl (70-99)
[2025-09-16 03:53] LABS: Hematocrit 26.5 % (37.0-47.0); Hemoglobin 8.9 g/dL (12.0-16.0); Mean Corp Hgb Conc. 33.6 g/dL (33.0-37.0); Mean Corpuscular Volume 101.1 fL (81.0-99.0); Nucleated Red Blood Cells % 0 %; Platelet Count 176 10^3/uL (130-400); Red Cell Dist. Width 14.3 % (11.5-14.5)
[2025-09-16 04:08] LABS: ALT (SGPT) 40 U/L (0-35); AST (SGOT) 63 U/L (14-36); Albumin 2.3 g/dl (3.5-5.0); Alkaline Phosphatase 61 U/L (38-126); Blood Urea Nitrogen 4 mg/dl (7-17); Calcium 7.8 mg/dl (8.4-10.2); Carbon Dioxide 23 mmol/L (22-30); Chloride 114 mmol/L (98-107); Estimated Creatinine Clearance 92 ml/min; Glucose 135 mg/dl (70-99); Potassium 3.7 mmol/L (3.5-5.1); Sodium 136 mmol/L (135-145); Total Protein 4.5 g/dl (6.3-8.2); Triglycerides 58 mg/dl (10-149); eGFR > 60.00
[2025-09-16] MEDS: PT'S OWN INSULIN PUMP - NovoLOG 3.7 UNIT SC ×3 (07:37→21:42)
[2025-09-16 07:51] LABS: Glucose - Point of Care 123 mg/dl (70-99)
[2025-09-16] MEDS: LOW STRENGTH ASPIRIN 81 MG TUBE (07:55)
[2025-09-16] MEDS: MIRALAX 17 GRAMS TUBE (07:56)
[2025-09-16] MEDS: KEPPRA 1000 MG IV (07:56)
[2025-09-16] MEDS: PT'S OWN INSULIN PUMP - NovoLOG 5.6 UNIT SC (13:09)
[2025-09-16 13:18] LABS: Glucose - Point of Care 162 mg/dl (70-99)
--- NOTE | 2025-09-16 14:50 | PTCARENOTE ---
Addendum entered by Americo Esteves RN 09/16/25 15:16:
Patient transferred to room 401-1 via WC. All belongings brought with patient. Pt thankful for care. Care transferred.
Original Note:
Report called to CHANDAN Hawkins.
--- NOTE | 2025-09-16 15:15 | PTCARENOTE ---
Received pt. from ICU, VSS, No c/o pain, #3 tele monitor placed on pt., ARR-Stach. Pt. family at bedside, pt. resting comfortably in bed with call chao within reach.
--- NOTE | 2025-09-16 16:39 | W.PN.HOSP.TC ---
Today's Communication/Plan
-
Assessment / Plan
Assessment / Plan
General: No acute distress, comfortable
HEENT: Status post craniotomy, moist mucous membranes
Respiratory: Clear breath sounds, equal chest rise
Cardiac: Regular rhythm, heart rate around 100
GI: Soft, Non Tender, Non Distended and Normal Bowel Sounds
Musculoskeletal: No Edema, no deformity
Skin: Warm and dry
: No Cervantes
Neuro: No tremor, no focal deficits
Psych: Calm, cooperative
Ms. Al is a 55-year-old female with a medical history of stage IV breast cancer with mets to brain liver and bone (status post craniotomy with tumor removal, radiation, biopsy suggestive of radiation necrosis) and IDDM with insulin pump.
Patient was at physical therapy when she suddenly became aphasic and fell to the ground, after which she developed tonic-clonic seizures. In the emergency room she was found to be in status epilepticus and intubated for airway protection. She was
started on propofol and loaded right IV Keppra and admitted to the ICU.
Status epilepticus:
- Seizures have aborted
- Will transition to oral Keppra 1 g twice daily
- Neurology had considered decreasing Keppra dose to avoid sedation, however for now we will continue same dose
- MRI brain with and without contrast shows multiple abnormalities none of which appear acute
- Anticipate discharge home tomorrow
IDDM:
- Patient has insulin pump
- Diabetes management nurse practitioner following
- Additional sliding scale insulin as needed
Transaminitis:
- Mild, stable
- Suspect due to metastatic disease
- Monitor
DVT prophylaxis: Lovenox
CODE STATUS: Full code
Anticipated Discharge: Within 24 hours
Subjective/Interval History
-
Date of Service: September 16, 2025
Patient seen and examined at bedside this morning. Awake and alert, feeling well. No seizure activity overnight.
Objective Data
-
Vital Signs:
Vital Signs
Temp Pulse Resp BP Pulse Ox
97.7 F 99 16 109/65 100
09/16/25 15:22 09/16/25 15:22 09/16/25 15:22 09/16/25 15:22 09/16/25 15:22
I&O
09/15/25 09/16/25 09/17/25
06:59 06:59 06:59
Intake Total 1570.1 / 1570.1 0 / 0 240 / 240
Output Total 685 / 685 250 / 250 150 / 150
Balance 885.1 / 885.1 -250 / -250 90 / 90
Review of Systems
-
History Source: Patient
All other systems: Reviewed and negative
Physical Exam
-
General: No Apparent Distress
[2025-09-16 17:16] LABS: Glucose - Point of Care 172 mg/dl (70-99)
[2025-09-16] MEDS: LOVENOX 40 MG SC (17:21)
[2025-09-16] MEDS: KEPPRA 1000 MG PO (19:54)
[2025-09-16 21:31] LABS: Glucose - Point of Care 174 mg/dl (70-99)
--- NOTE | 2025-09-17 01:01 | W.PN.NEURO.1 ---
Today's Communication / Plan
-
Continue levetiracetam 1000 mg BID at discharge
Neuro Assessment/Plan
Assessment
Ms. Al is a 55 F PMH metastatic breast cancer (brain s/p gamma knife, RT craniotomy), presenting with acute onset change mental status with generalized tonic-clonic movements. As the patient's initial event was longer than 10 minutes, most
likely consistent with status epilepticus, not evident by use of the Ceribell device.Ms. Al will require long-term anti-seizure medication given ongoing risk for epilepsy 2/2 metastatic intracranial disease and associated post-treatment
related vasogenic edema. Although recent EEG was unremarkable, would favor continuing at same moderate dose of levetiracetam given high risk for recurrent seizures and improved lethargy (which could also be secondary to prolonged post-ictal period
or sedatives).
Plan
- continue levetiracetam 1000 mg BID at discharge
- if isidro continues to experience lethargy or other treatment-related changes outpatient, can down-titrate to 500-750 mg BID, or switch to briviracetam or other ASM
- for interval seizures, ativan 2 mg or midazolam 5 mg; if persistent load with additional levetiracetam 2000 mg , and up-titrate standing dose to 1500 mg BID
- patient cannot drive for 6 months from date of seizure, DMV reporting
- seizure precautions
- outpatient neurology followup
Neurology will signoff, please reach out with further questions.
Subjective/Objective
Subjective Data
Date of Service: September 16, 2025
- EEG> 1 hour normal
- Continued on levetiracetam 1000 mg BID
- No interval seizures, staring spells, or confusional episodes. Improved lethargy.
Objective Data
Vital Signs
Temp Pulse Resp BP Pulse Ox
36.6 C 90 18 104/64 98
09/16/25 23:14 09/16/25 23:14 09/16/25 23:14 09/16/25 23:14 09/16/25 23:14
PT 12.8 Sec (11.4-14.6) 09/13/25 14:21
INR 0.98 09/13/25 14:21
APTT 21.7 Sec (23.4-35.0) L 09/13/25 14:21
Sodium 136 mmol/L (135-145) 09/16/25 03:24
Potassium 3.7 mmol/L (3.5-5.1) 09/16/25 03:24
BUN 4 mg/dl (7-17) L 09/16/25 03:24
Glucose 135 mg/dl (70-99) H 09/16/25 03:24
Calcium 7.8 mg/dl (8.4-10.2) L 09/16/25 03:24
Phosphorus 2.4 mg/dl (2.5-4.5) L 09/14/25 11:48
LDL Cholesterol, Calc 69 mg/dl 09/14/25 03:08
Vitamin B12 506 pg/ml (239-931) 09/14/25 11:48
Patient Allergies
No Known Allergies Allergy (Verified 06/25/24 17:49)
09/16 GREATER THAN 1 HOUR EEG INTERPRETATION:
Unremarkable EEG for age
CLINICAL CORRELATION:
A normal EEG does not rule out a diagnosis of epilepsy. If clinical suspicion for seizure persists, a prolonged recording may be warranted.
Clinical correlation is advised.
Review of Systems
-
All other systems: Reviewed and negative
Physical Exam
-
Awake, alert, oriented
Intact speech, follows commands
Data Reviewed
-
MRI Head: Report Reviewed and Image Reviewed
EEG: Report Reviewed
Labs: Report Reviewed
[2025-09-17 03:46] VITALS: BP 96/63
[2025-09-17 04:53] LABS: Hematocrit 26.9 % (37.0-47.0); Hemoglobin 9.2 g/dL (12.0-16.0); Mean Corp Hgb Conc. 34.2 g/dL (33.0-37.0); Mean Corpuscular Volume 102.3 fL (81.0-99.0); Nucleated Red Blood Cells % 0 %; Platelet Count 189 10^3/uL (130-400); Red Cell Dist. Width 14.1 % (11.5-14.5)
[2025-09-17 06:16] LABS: ALT (SGPT) 44 U/L (0-35); AST (SGOT) 52 U/L (14-36); Albumin 2.3 g/dl (3.5-5.0); Alkaline Phosphatase 68 U/L (38-126); Blood Urea Nitrogen 6 mg/dl (7-17); Calcium 7.9 mg/dl (8.4-10.2); Carbon Dioxide 24 mmol/L (22-30); Chloride 114 mmol/L (98-107); Estimated Creatinine Clearance 91 ml/min; Glucose 123 mg/dl (70-99); Potassium 3.4 mmol/L (3.5-5.1); Sodium 138 mmol/L (135-145); Total Protein 4.5 g/dl (6.3-8.2); eGFR > 60.00
[2025-09-17 06:58] LABS: Glucose - Point of Care 143 mg/dl (70-99)
[2025-09-17 07:00] VITALS: BP 106/64
[2025-09-17] MEDS: LOW STRENGTH ASPIRIN 81 MG TUBE (08:19)
[2025-09-17] MEDS: MIRALAX 17 GRAMS TUBE (08:19)
[2025-09-17] MEDS: KEPPRA 1000 MG PO (08:19)
[2025-09-17] MEDS: PT'S OWN INSULIN PUMP - NovoLOG 3.3 UNIT SC (08:22)
[2025-09-17 09:51] VITALS: BP 110/64; PULSE 99; O2SAT 99
[2025-09-17 11:00] VITALS: BP 117/75
[2025-09-17 12:07] LABS: Glucose - Point of Care 209 mg/dl (70-99)
[2025-09-17] MEDS: PT'S OWN INSULIN PUMP - NovoLOG 5.5 UNIT SC (12:20)
--- NOTE | 2025-09-17 12:23 | W.DCSUMMARY ---
Discharge Summary
Discharge Data
Date of Admission: 09/13/25
Date of Discharge: 09/17/25
Total time spent discharging patient (in min): 45
-
Pending Results: No
Hospital Course
Ms. Al is a 55-year-old female with a medical history of stage IV breast cancer with mets to brain liver and bone (status post craniotomy with tumor removal, radiation, biopsy suggestive of radiation necrosis) and IDDM with insulin pump.
Patient was at physical therapy when she suddenly became aphasic and fell to the ground, after which she developed tonic-clonic seizures. In the emergency room she was found to be in status epilepticus and intubated for airway protection. She was
started on propofol and loaded right IV Keppra and admitted to the ICU.
Her seizures aborted with the above-mentioned treatment. She was able to be extubated. MRI brain with and without contrast showed multiple chronic abnormalities related to her metastatic cancer and subsequent treatments. These abnormalities were
likely contributing to her seizures. She has been seizure-free since starting on Keppra 1 g twice daily. She will be continued on this dose at discharge and will need close follow-up with her primary neurologist. She returned to her baseline
mental status and was medically stable at the time of hospital discharge.
General: No acute distress, comfortable
HEENT: Status post craniotomy, moist mucous membranes
Respiratory: Clear breath sounds, equal chest rise
Cardiac: Regular rhythm, heart rate around 90
GI: Soft, Non Tender, Non Distended and Normal Bowel Sounds
Musculoskeletal: No Edema, no deformity
Skin: Warm and dry
: No Cervantes
Neuro: No tremor, no focal deficits
Psych: Calm, cooperative
Discharge Plan
-
Patient Disposition: Home (Routine Discharge)
Discharge Diagnosis/Procedures: Status epilepticus
Driving Restrictions: No driving
Activity Restrictions/Additional Instructions:
You were admitted for treatment of multiple seizures. You were intubated for airway protection and mechanically ventilated. Your seizures ultimately resolved with IV medications. You were evaluated by the neurologist who recommended treating with
levetiracetam (brand-name Keppra) 1 g twice daily. You will need close follow-up with your primary neurologist for ongoing management and medication adjustments as needed.
Referrals:
NONE,* [Family Provider, Internal Medicine]
Prescriptions:
New
levetiracetam 500 mg Tablet
1,000 mg PO BID 60 Days Qty: 240 0RF
Continued
ondansetron HCl 8 mg Tablet
8 mg PO DAILYPRN PRN (Reason: n/v)
calcium carbonate [Calcium 500] 500 mg calcium (1,250 mg) Tablet,Chewable
500 mg PO DAILY
cholecalciferol (vitamin D3) 1,250 mcg (50,000 unit) Capsule
1,250 mcg PO FR
pyridoxine (vitamin B6) 100 mg Tablet
100 mg PO DAILY
magnesium oxide 200 mg magnesium Tablet
200 mg PO DAILY
Patient's Own Insulin Pump
1 sliding scale dose SC DIRECTED
Rx Instructions:
insulin aspart (Novolog)
dexamethasone 4 mg Tablet
8 mg PO DAILYPRN PRN (Reason: with infusion every 3 weeks)
polyethylene glycol 3350 [Miralax] 17 gram/dose Powder
17 g PO DAILY
bisacodyl 5 mg Tablet
5 mg PO DAILYPRN PRN (Reason: constipation)
Discharge Orders:
Discharge Patient (As Directed); Ordered 09/17/25
Ordered By: Julius Lopez
Discharge Date and Time
Print Language: NIUEAN
== END 2025-09-17 13:09 | disposition home or self-care (01) | DRG 101 ==
LOC: 4 EAST ACU 17:00
PROVIDERS: Clinical Nurse Specialist Family Health; Nurse Practitioner Family; Physician Assistant; ADMITTING PHYSICIAN Internal Medicine; ATTENDING PHYSICIAN Internal Medicine; CONSULT PHYSICIAN Internal Medicine; CONSULT PHYSICIAN Psychiatry & Neurology Neurology; EMERGENCY PHYSICIAN Student in an Organized Health Care Education/Training Program
PROC: 5A1935Z Respiratory Ventilation, Less than 24 Consecutive Hours (ICD-10-PCS; 2025-09-13)
PROC: 0BH17EZ Insertion of Endotracheal Airway into Trachea, Via Natural or Artificial Opening (ICD-10-PCS; 2025-09-13)
PROC: 0BP1XDZ Removal of Intraluminal Device from Trachea, External Approach (ICD-10-PCS; 2025-09-14)
PROC: XX20X89 Monitoring of Brain Electrical Activity, Computer-aided Detection and Notification, New Technology Group 9 (ICD-10-PCS; 2025-09-14)
DX: G40.901 Epilepsy, unspecified, not intractable, with status epilepticus (principal); C79.31 Secondary malignant neoplasm of brain; C79.51 Secondary malignant neoplasm of bone; R47.01 Aphasia; E10.9 Type 1 diabetes mellitus without complications; C50.919 Malignant neoplasm of unspecified site of unspecified female breast; H55.09 Other forms of nystagmus; R25.3 Fasciculation; G83.11 Monoplegia of lower limb affecting right dominant side; M51.369 Other intervertebral disc degeneration, lumbar region without mention of lumbar back pain or lower extremity pain; R26.2 Difficulty in walking, not elsewhere classified; R74.01 Elevation of levels of liver transaminase levels; R16.0 Hepatomegaly, not elsewhere classified; G93.89 Other specified disorders of brain; D53.9 Nutritional anemia, unspecified; M48.061 Spinal stenosis, lumbar region without neurogenic claudication; W18.30XA Fall on same level, unspecified, initial encounter; Y93.89 Activity, other specified; Y92.531 Health care provider office as the place of occurrence of the external cause; Z96.41 Presence of insulin pump (external) (internal); Z92.21 Personal history of antineoplastic chemotherapy; Z79.4 Long term (current) use of insulin; Z92.3 Personal history of irradiation; Z82.49 Family history of ischemic heart disease and other diseases of the circulatory system; Z79.82 Long term (current) use of aspirin
CPT/HCPCS: 31500; 36600; 70450; 70553; 71045; 80048; 80053; 80061; 82607; 82728; 82746; 82805; 82962; 83036; 83605; 83735; 84100; 84478; 85025; 85610; 85730; 87040; 87070; 87147; 87186; 87205; 92610; 93005; 94002; 94003; 95708; 95813; 96361; 96374; 96375; 96376; 97163; 97167; 99291; A9575